=== PATIENT | female | born 2000 | race African-American/Black ===

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

== ENCOUNTER 2018-02-23 06:31 | Emergency (ER) | payer MEDICAID ==
--- NOTE | 2018-02-23 07:43 | ER Document Report ---
ED General - General Chief Complaint: Abdominal Pain Stated Complaint: ABDOMINAL PAIN Time Seen by Provider: 02/23/18 07:15 Mode of Arrival: Ambulatory Information source: Patient TRAVEL OUTSIDE OF THE [place] IN LAST 30 DAYS: No - HPI Patient complains to provider of: Periumbilical pain Onset: Yesterday Onset/Duration: denies: Intermittent - x 3 months, severe this morning. Severity: Severe Pain Level: 3 Associated symptoms: Nausea Exacerbated by: Denies. denies: Food Relieved by: Denies Similar symptoms previously: No Recently seen / treated by doctor: No Notes: Still has appendix and gallbladder. Denies , currently on menses - Related Data Allergies/Adverse Reactions: No Known Allergies Allergy (Unverified 03/10/17 20:32) Past Medical History - General Information source: Patient - Social History Smoking Status: Unknown if Ever Smoked Family History: None, Reviewed & Not Pertinent Renal/ Medical History: Denies: Hx Peritoneal Dialysis Review of Systems - Review of Systems Constitutional: No symptoms reported EENT: No symptoms reported Cardiovascular: No symptoms reported Respiratory: No symptoms reported Gastrointestinal: See HPI Genitourinary: No symptoms reported Female Genitourinary: No symptoms reported Musculoskeletal: No symptoms reported Skin: No symptoms reported Hematologic/Lymphatic: No symptoms reported Neurological/Psychological: No symptoms reported Physical Exam - Vital signs Vitals: Temp Pulse Resp BP Pulse Ox 98.4 F 78 20 112/72 99 02/23/18 06:35 02/23/18 06:35 02/23/18 06:35 02/23/18 06:35 02/23/18 06:35 - Notes Notes: PHYSICAL EXAMINATION: GENERAL: Well-appearing, well-nourished and in no acute distress. HEAD: Atraumatic, normocephalic. EYES: Pupils equal round and reactive to light, extraocular movements intact, conjunctiva are normal. ENT: Nares patent, oropharynx clear without exudates. Moist mucous membranes. NECK: Normal range of motion, supple without lymphadenopathy LUNGS: Breath sounds clear to auscultation bilaterally and equal. No wheezes rales or rhonchi. HEART: Regular rate and rhythm without murmurs ABDOMEN: Soft, periumbilical tenderness on palpation with rebound. nondistended abdomen. No guarding, no rebound. No masses appreciated. no CVA tenderness bilaterally Female : deferred Musculoskeletal: Normal range of motion, no pitting or edema. No cyanosis. NEUROLOGICAL: Cranial nerves grossly intact. Normal speech, normal gait. Normal sensory, motor exams PSYCH: Normal mood, normal affect. SKIN: Warm, Dry, normal turgor, no rashes or lesions noted. Course - Re-evaluation Re-evalutation: 02/23/18 10:19 16-year-old female is afebrile, vitals stable and in no distress presents for evaluation of periumbilical pain has become progressively worse in the last 24 hours but she has had intermittently over the course 3 months. Reports pain is sharp and shooting. Patient is on a depo shot for control, states she has had vaginal bleeding for the last 5 days, denies any sexual intercourse for the last 4 months. Is due to get her next shot in 1 week with [facility]. CBC negative for leukocytosis, CMP negative for hepatic renal dysfunction, no electrolyte disturbances. Urinalysis shows patient has a UTI with hematuria. Transvaginal ultrasound that showed endometrial thickening, ultrasound of abdomen is unable to visualize appendix, CT abdomen pelvis with IV contrast does show some periorbital edema throughout the liver the patient is hydrated, appendix is normal. Will start patient on a PPI, H pylori result is still pending. Discussed the patient follow-up with tobacco stripper hand within 1 week. Avoid any NSAIDs. After performing a Medical Screening Examination, I estimate there is LOW risk for ACUTE APPENDICITIS, BOWEL OBSTRUCTION, ACUTE CHOLECYSTITIS, PERFORATED DIVERTICULITIS, INCARCERATED HERNIA , PANCREATITIS, PELVIC INFLAMMATORY DISEASE, PERFORATED ULCER, ECTOPIC , or TUBO-OVARIAN ABSCESS, thus I consider the discharge disposition reasonable. Also, there is no evidence or peritonitis, sepsis, or toxicity. I have reevaluated this patient multiple times and no significant life threatening changes are noted. The patient and I have discussed the diagnosis and risks, and we agree with discharging home with close follow-up with the understanding that symptoms and presentations can change. We also discussed returning to the Emergency Department immediately if new or worsening symptoms occur. We have discussed the symptoms which are most concerning (e.g., bloody stool, fever, changing or worsening pain, vomiting) that necessitate immediate return. - Vital Signs Vital signs: Temp Pulse Resp BP Pulse Ox 98.6 F 69 16 107/74 99 02/23/18 10:17 02/23/18 10:17 02/23/18 10:17 02/23/18 10:17 02/23/18 10:17 - Laboratory Result Diagrams: 02/23/18 08:35 02/23/18 08:35 Laboratory results interpreted by me: 02/23/18 02/23/18 02/23/18 08:20 08:35 08:35 Hgb 10.8 L Hct 34.3 L MCV 65 L MCH 20.6 L MCHC 31.6 L RDW 19.2 H Chloride 108 H Urine Blood SMALL H Urine Urobilinogen 2.0 H Ur Leukocyte Esterase MODERATE H Discharge - Discharge Clinical Impression: Thickened endometrium, Gastritis UTI (urinary tract infection) Qualifiers: Urinary tract infection type: acute cystitis Hematuria presence: with hematuria Qualified Code(s): N30.01 - Acute cystitis with hematuria Condition: Stable Disposition: HOME, SELF-CARE Instructions: Trimethoprim-Sulfa ([facility]), Urinary Anesthetic Agent ([facility]), Urinary Tract Infection ([facility]), Abdominal Pain ([facility]), Gastritis ([facility]) Prescriptions: Omeprazole 40 mg PO DAILY #30 capsule. Phenazopyridine HCl [Pyridium] 200 mg PO TIDP PRN #9 tablet PRN Reason: Sulfamethoxazole/Trimethoprim [Bactrim Ds Tablet] 1 each PO BID #20 tablet Forms: Return to Work Referrals: RASHEL CARTER MD [ASSOCIATE] - Follow up in 1 week (prn) JOSE LUIS DAO MD [ACTIVE STAFF] - Follow up in 1 week PARAS VIEIRA MD [Primary Care Provider] - Follow up in 3-5 days
[2018-02-23] MEDS ORDERED: NORMAL SALINE 1000 ML 1,000 ML IV ONE (08:16)
[2018-02-23 09:01] LABS: ABSOLUTE BASOPHILS # (AUTO) 0.1 10^3/uL (0.0-0.2); ABSOLUTE EOSINOPHILS # (AUTO) 0.2 10^3/uL (0.0-0.6); ABSOLUTE LYMPHOCYTES (AUTO) 2.5 10^3/uL (0.5-4.7); ABSOLUTE MONOCYTES (AUTO) 0.4 10^3/uL (0.1-1.4); ABSOLUTE NEUT (AUTO) 3.7 10^3/uL (1.7-8.2); BASOPHILS % (AUTO) 1.6 % (0-2); EOSINOPHILS % (AUTO) 3.3 % (0-6); HEMATOCRIT 34.3 % (36.0-47.0); HEMOGLOBIN 10.8 g/dL (12.0-15.5); LYMPHOCYTES % (AUTO) 35.3 % (13-45); MEAN CORPUSCULAR HEMOGLOBIN 20.6 pg (27.0-33.4); MEAN CORPUSCULAR HGB CONC 31.6 g/dL (32.0-36.0); MEAN CORPUSCULAR VOLUME 65 fl (80-97); MONOCYTES % (AUTO) 6.1 % (3-13); PLATELET COUNT 419 10^3/uL (150-450); RED BLOOD COUNT 5.26 10^6/uL (3.72-5.28); RED CELL DISTRIBUTION WIDTH 19.2 % (11.5-14.0); SEGMENTED NEUTROPHILS % (AUTO) 53.7 % (42-78); TOTAL CELLS COUNTED % (AUTO) 100 %
[2018-02-23 09:06] LABS: APPEARANCE,URINE SLIGHTLY-CLOUDY; BILIRUBIN,URINE NEGATIVE (NEGATIVE); COLOR,URINE YELLOW; GLUCOSE, URINE NEGATIVE (NEGATIVE); KETONES,URINE NEGATIVE (NEGATIVE); LEUKOCYTE ESTERASE,URINE MODERATE (NEGATIVE); NITRITE,URINE NEGATIVE (NEGATIVE); PROTEIN,URINE NEGATIVE (NEGATIVE); URINE SPECIFIC GRAVITY 1.016
--- NOTE | 2018-02-23 09:14 | RADIOLOGY REPORT (SQ) ---
EXAM DESCRIPTION: U/S ABDOMEN LTD W/DOPPLER COMPLETED DATE/TIME: 02/23/2018 8:49 am REASON FOR STUDY: Periumbilical pain, please look at appendix COMPARISON: None. TECHNIQUE: Static and real time ruiz scale imaging performed of the right lower quadrant with additi onal compression maneuvers. LIMITATIONS: None. FINDINGS: APPENDIX: Not visualized. COMPRESSION MANEUVERS: No rebound pain with compression. OTHER: No other significant finding. IMPRESSION: APPENDIX NOT IDENTIFIED. TECHNICAL DOCUMENTATION: JOB ID: [id number] [employer]- All Rights Reserved Reading location - IP/workstation name: [email or web address]
[2018-02-23 09:24] LABS: ALANINE AMINOTRANSFERASE 24 U/L (5-35); ALBUMIN 4.5 g/dL (3.7-5.6); ALKALINE PHOSPHATASE 103 U/L (50-135); ANION GAP 13 (5-19); ASPARTATE AMINO TRANSFERASE 19 U/L (5-30); BILIRUBIN,DIRECT 0.3 mg/dL (0.0-0.4); BILIRUBIN,TOTAL 0.4 mg/dL (0.2-1.3); BLOOD UREA NITROGEN 8 mg/dL (7-20); CALCIUM 9.5 mg/dL (8.4-10.2); CARBON DIOXIDE 24 mmol/L (22-30); CHLORIDE 108 mmol/L (98-107); GLUCOSE 91 mg/dL (75-110); LIPASE 145.6 U/L (23-300); POTASSIUM 4.4 mmol/L (3.6-5.0); SODIUM 144.7 mmol/L (137-145); TOTAL PROTEIN 7.9 g/dL (6.3-8.2)
--- NOTE | 2018-02-23 11:13 | RADIOLOGY REPORT (SQ) ---
EXAM DESCRIPTION: CT ABD/PELVIS WITH IV ONLY COMPLETED DATE/TIME: 02/23/2018 10:45 am REASON FOR STUDY: Periumbilical pain COMPARISON: None. TECHNIQUE: CT scan of the abdomen and pelvis performed using helical scanning technique with dynamic intravenous contrast injection. No oral contrast. Images reviewed with lung, soft tissue, and bone windows. Reconstructed coronal and sagittal MPR images reviewed. Delayed images for evaluation of the urinary system also acquired. All images stored on PACS. All CT scanners at this facility use dose modulation, iterative reconstruction, and/or weight based d osing when appropriate to reduce radiation dose to as low as reasonably achievable (ALARA). [facility]: Dose Right [facility]: CareDose [facility]: Dose Right [facility]: Teradose 4D [facility]: [employer] CONTRAST TYPE AND DOSE: contrast/concentration: Isovue 370.00 mg/ml; Total Contrast Delivered: 81.0 ml; Total Saline Delivered: 68.0 ml 81 mL Isovue 370- low osmolar. RENAL FUNCTION: None required. The patient is less than 50 years old. RADIATION DOSE: CT Rad equipment meets quality standard of care and radiation dose reduction techniq ues were employed. CTDIvol: 7.2 - 10.4 mGy. DLP: 853 mGy-cm.. LIMITATIONS: None. FINDINGS: LOWER CHEST: No significant findings. No nodules or infiltrates. LIVER: Normal size. No masses. No dilated ducts. Periportal edema is present throughout the liver. SPLEEN: Normal size. No focal lesions. PANCREAS: No masses. No significant calcifications. No adjacent inflammation or peripancreatic fluid collections. Pancreatic duct not dilated. GALLBLADDER: No identified stones by CT criteria. No inflammatory changes to suggest cholecystitis. ADRENAL GLANDS: No significant masses or asymmetry. RIGHT KIDNEY AND URETER: No solid masses. No significant calcifications. No hydronephrosis or hyd roureter. LEFT KIDNEY AND URETER: No solid masses. No significant calcifications. No hydronephrosis or hydr oureter. AORTA AND VESSELS: No aneurysm. No dissection. Renal arteries, SMA, celiac without stenosis. RETROPERITONEUM: No retroperitoneal adenopathy, hemorrhage or masses. BOWEL AND PERITONEAL CAVITY: No masses or inflammatory changes. No free fluid or peritoneal masses. APPENDIX: Normal. PELVIS: The endometrium is markedly thickened within the uterus measuring up to 2.2 cm in thickness. The ovaries are unremarkable for age in technique. The bladder is normal in appearance. ABDOMINAL WALL: No masses. No hernias. BONES: No significant or acute findings. OTHER: No other significant finding. IMPRESSION: 1. Markedly thickened endometrium. Recommend correlation with patient's menstrual stat us. 2. Periportal edema throughout the liver. Recommend correlation with patient's hydration status. 3. Normal appendix TECHNICAL DOCUMENTATION: JOB ID: [id number] Quality ID # [id number]: Final reports with documentation of one or more dose reduction techniques (e.g., Au tomated exposure control, adjustment of the mA and/or kV according to patient size, use of iterative reconstruction technique) 2010 [employer]- All Rights Reserved Reading location - IP/workstation name: [email or web address]
[2018-02-23 12:01] VITALS: BP 110/67
[2018-02-26 07:05] LABS: HELICOBACTER PYLORI IGA AB <9.0 units (0.0-8.9); HELICOBACTER PYLORI IGG AB <0.80 (0.00-0.79); HELICOBACTER PYLORI IGM AB <9.0 units (0.0-8.9)
== END 2018-02-23 12:11 | disposition home or self-care (01) ==
LOC: ER 06:31
DX: K29.70 Gastritis, unspecified, without bleeding (principal); N30.01 Acute cystitis with hematuria; R93.8 Abnormal findings on diagnostic imaging of other specified body structures; R10.33 Periumbilical pain; R11.0 Nausea
CPT/HCPCS: 99284; 96360; 86677 ×3; 36415; 87086; 83690; 84703; 85025; 80053; 81001; 76705; 93976; 74177; J7030

== ENCOUNTER 2019-07-26 15:11 | Emergency (ER) | payer MEDICAID ==
[2019-07-26] MEDS ORDERED: AZITHROMYCIN 250 MG TABLET PO ONE (16:14)
[2019-07-26] MEDS ORDERED: LIDOCAINE 1% INJ-PF (10 MG/ML) 30 ML SDV INJ ONE (16:14)
[2019-07-26] MEDS ORDERED: CEFTRIAXONE INJ 250 MG VIAL IM ONE (16:14)
[2019-07-26 16:43] LABS: APPEARANCE,URINE CLEAR; BILIRUBIN,URINE NEGATIVE (NEGATIVE); COLOR,URINE YELLOW; GLUCOSE, URINE NEGATIVE (NEGATIVE); KETONES,URINE NEGATIVE (NEGATIVE); LEUKOCYTE ESTERASE,URINE TRACE (NEGATIVE); NITRITE,URINE NEGATIVE (NEGATIVE); PROTEIN,URINE NEGATIVE (NEGATIVE); URINE SPECIFIC GRAVITY 1.024; UROBILINOGEN,URINE NEGATIVE mg/dL (<2.0)
--- NOTE | 2019-07-26 17:16 | ER Document Report ---
HPI - HPI Time Seen by Provider: 07/26/19 16:07 Pain Level: 4 Context: Patient is a 19-year-old female who presents emergency department with a chief complaint of STD exposure. Patient reports she is sexually active with 1 partner did turn positive for chlamydia last week. Patient reports initially she was not having any discomfort of her vaginal discharge but now she is having burning with urination and itching. Patient reports her vaginal discharge is yellow in color and thick. Patient denies odor. Patient denies fever. Patient reports last menstrual cycle was the Apr 29 and she is on control. - REPRODUCTIVE LMP: irregular periods Reproductive: DENIES: : Past Medical History - General Information source: Patient - Social History Smoking Status: Current Every Day Smoker Chew tobacco use (# tins/day): No Frequency of alcohol use: Occasional Drug Abuse: None Family History: None, Reviewed & Not Pertinent Patient has suicidal ideation: No Patient has homicidal ideation: No - Past Medical History Cardiac Medical History: Reports: None Pulmonary Medical History: Reports: None EENT Medical History: Reports: None Neurological Medical History: Reports: None Endocrine Medical History: Reports: None Renal/ Medical History: Reports: None. Denies: Hx Peritoneal Dialysis Malignancy Medical History: Reports: None GI Medical History: Reports: None Musculoskeletal Medical History: Reports None Skin Medical History: Reports None Psychiatric Medical History: Reports: None Traumatic Medical History: Reports: None Infectious Medical History: Reports: None Surgical Hx: Negative Vertical Provider Document - CONSTITUTIONAL Agree With Documented VS: Yes Exam Limitations: No Limitations General Appearance: No Apparent Distress - INFECTION CONTROL TRAVEL OUTSIDE OF THE [place] IN LAST 30 DAYS: No - HEENT HEENT: Atraumatic, Normal ENT Exam, Normocephalic, PERRLA - NECK Neck: Normal Inspection - RESPIRATORY Respiratory: Breath Sounds Normal, No Respiratory Distress - CARDIOVASCULAR Cardiovascular: Regular Rate, Regular Rhythm - GI/ABDOMEN Gastrointestinal: Abdomen Soft, Abdomen Non-Tender, Normal Bowel Sounds - MUSCULOSKELETAL/EXTREMETIES Musculoskeletal/Extremeties: FROM - NEURO Level of Consciousness: Awake, Alert, Appropriate - DERM Integumentary: Warm, Dry, No Rash Course - Re-evaluation Re-evalutation: 07/26/19 17:16 Patient to be prophylactically treated for gonorrhea and chlamydia. Cultures pending. Will check a wet mount to rule out yeast, bacterial vaginosis or trichomonas. 07/26/19 17:49 Patient was noted to have active vaginosis on the wet mount. Negative for trichomonas and yeast. Patient was prophylactically treated for gonorrhea and chlamydia. Will prescribe Flagyl. I did inform the patient do not drink alcohol while on Flagyl as this will make her sick. Patient given strict return precautions. - Vital Signs Vital signs: Temp Pulse Resp BP Pulse Ox 98.3 F 81 16 128/72 H 99 07/26/19 15:58 07/26/19 15:15 07/26/19 15:58 07/26/19 15:15 07/26/19 15:58 - Laboratory Laboratory results interpreted by me: 07/26/19 16:24 Urine Blood SMALL H Ur Leukocyte Esterase TRACE H 07/26/19 17:46 Laboratory 07/26/19 07/26/19 16:24 17:10 Urine Color YELLOW Urine Appearance CLEAR Urine pH 5.0 Ur Specific Bowlus 1.024 Urine Protein NEGATIVE Urine Glucose (UA) NEGATIVE Urine Ketones NEGATIVE Urine Blood SMALL H Urine Nitrite NEGATIVE Urine Bilirubin NEGATIVE Urine Urobilinogen NEGATIVE Ur Leukocyte Esterase TRACE H Urine WBC (Auto) 1 Urine RBC (Auto) 4 Squamous Epi Cells Auto 1 Urine Mucus (Auto) MANY Urine Ascorbic Acid NEGATIVE Urine HCG, Qual NEGATIVE Epi Cells (Wet Prep) 3+ EPITHELIALS SEEN Bacteria (Wet Prep) 4+ BACTERIA SEEN Trichomonas (Wet Prep) NO TRICHOMONAS SEEN Vaginal WBC 3+ WBCS SEEN Vaginal RBC RARE RBCS SEEN Vaginal Yeast NO YEAST SEEN Procedures - Pelvic Exam Pelvic exam Time completed: 17:15 Cultures obtained: Yes Wet prep obtained: Yes Bimanual exam performed: Yes - No CMT Witnessed by: Michelle PCT Notes: 07/26/19 17:15 Patient's external genitalia was unremarkable without edema, lesions or erythema. Patient tolerated the insertion of the speculum fairly well. I was able to visualize the cervix which did reveal a thick yellow discharge. There is no vaginal bleeding noted. Patient did not have any cervical motion tenderness with bimanual examination. Discharge - Discharge Clinical Impression: Exposure to STD, Bacterial vaginosis Condition: Stable Disposition: HOME, SELF-CARE Additional Instructions: *Today you are seen in the emergency department for possible STD exposure. We have prophylactically treated you for gonorrhea and chlamydia. These medications were a one-time dose given to you in the emergency department. You will be contacted if your test is positive. If it is positive you do need to be retested in 2 weeks to make sure that the STD has been treated appropriately and is gone. Please refrain from sexual activity until you know that you do not have an STD. You need to use protection every time you have sex. Failure to do so can result in transmission of infections or unintended . You have been treated for an sexually transmitted infection (STI) today. All of your partners should be tested and treated as they are also likely to be infected. Please return if you develop abdominal pain, fever, persistent vomiting, or any other symptoms that are concerning to you. Vaginosis, Bacterial Your exam shows you have bacterial vaginosis. This condition is due to an overgrowth of bacteria in the vagina. Symptoms may include vaginal itching or pain, a smelly discharge, and sometimes burning with urination. Normally this is not transmitted by sexual contact. Vaginosis can be treated with oral or topical antibiotics. Metronidazole (Flagyl) pills are usually effective. Topical vaginal creams include Cleocin and Metro-Gel. You should avoid sexual contact until your symptoms are all better. Call the doctor if you develop pelvic pain, fever, or problems with urination, or if you don't improve as expected. Do NOT drink alcohol with Flagyl - it will make you extremely sick. Prescriptions: Metronidazole [Flagyl 500 mg Tablet] 500 mg PO BID #14 tablet
[2019-07-26 17:33] LABS: BACTERIA (WET MOUNT) 4+ BACTERIA SEEN; EPITHELIALS (WET MOUNT) 3+ EPITHELIALS SEEN; RBCS (WET MOUNT) RARE RBCS SEEN; T.VAGINALIS (WET MOUNT) NO TRICHOMONAS SEEN; WBCS (WET MOUNT) 3+ WBCS SEEN; YEAST (WET MOUNT) NO YEAST SEEN
[2019-07-26 18:11] VITALS: BP 108/70
[2019-07-26 19:02] LABS: CHLAM PCR DETECTED (NOT DETECT)
== END 2019-07-26 18:00 | disposition home or self-care (01) ==
LOC: ER 15:11
DX: N76.0 Acute vaginitis (principal); B96.89 Other specified bacterial agents as the cause of diseases classified elsewhere; Z20.2 Contact with and (suspected) exposure to infections with a predominantly sexual mode of transmission; R30.0 Dysuria; L29.2 Pruritus vulvae; F17.200 Nicotine dependence, unspecified, uncomplicated; Z79.3 Long term (current) use of hormonal contraceptives
CPT/HCPCS: 99283; 96372; 87210; 81025; 81001; 87491; 87591; Q0144; J3490; J0696

== ENCOUNTER 2019-07-31 16:00 | Emergency (ER) | payer SELFPAY ==
--- NOTE | 2019-07-31 17:47 | ER Document Report ---
ED Medical Screen (RME) - General Chief Complaint: Vaginal Itching Stated Complaint: VAGINAL PAIN/DISCOMFORT Time Seen by Provider: 07/31/19 17:40 Mode of Arrival: Ambulatory Information source: Patient Notes: 19-year-old female patient presents emergency department chief complaint of pelvic pain, dysuria and abnormal vaginal discharge. Patient reports she was seen here on 07/26/2019, diagnosed with chlamydia and bacterial vaginosis. Patient reports that she continues to have foul vaginal discharge and now has pelvic pain specifically in the left lower quadrant and left flank area. She denies any known fevers but does state that she has been having chills and nausea. Patient denies any vomiting. Exam: Tenderness to palpation of the left lower quadrant. I have greeted and performed a rapid initial assessment of this patient. A comprehensive ED assessment and evaluation of the patient, analysis of test results and completion of the medical decision making process will be conducted by additional ED providers. I have specifically instructed the patient or family members with the patient to immediately return to any nursing staff should anything change in the patient's condition or with their chief complaint. This medical record was dictated with voice recognizing software. There may be grammatical, syntax errors that are unintended. TRAVEL OUTSIDE OF THE [place] IN LAST 30 DAYS: No - Related Data Allergies/Adverse Reactions: No Known Allergies Allergy (Verified 07/31/19 17:39) Past Medical History - Social History Chew tobacco use (# tins/day): No Frequency of alcohol use: None Drug Abuse: None Renal/ Medical History: Denies: Hx Peritoneal Dialysis Physical Exam - Vital signs Vitals: Temp Pulse Resp BP Pulse Ox 98.3 F 80 18 119/56 L 98 07/31/19 16:35 07/31/19 16:35 07/31/19 16:35 07/31/19 16:35 07/31/19 16:35 Course - Vital Signs Vital signs: Temp Pulse Resp BP Pulse Ox 98.3 F 80 18 119/56 L 98 07/31/19 17:39 07/31/19 16:35 07/31/19 17:39 07/31/19 16:35 07/31/19 17:39
[2019-07-31 18:03] LABS: ABSOLUTE BASOPHILS # (AUTO) 0.1 10^3/uL (0.0-0.2); ABSOLUTE EOSINOPHILS # (AUTO) 0.1 10^3/uL (0.0-0.6); ABSOLUTE LYMPHOCYTES (AUTO) 1.9 10^3/uL (0.5-4.7); ABSOLUTE NEUT (AUTO) 4.2 10^3/uL (1.7-8.2); BASOPHILS % (AUTO) 0.7 % (0-2); EOSINOPHILS % (AUTO) 1.7 % (0-6); HEMATOCRIT 41.1 % (36.0-47.0); HEMOGLOBIN 13.2 g/dL (12.0-15.5); LYMPHOCYTES % (AUTO) 26.5 % (13-45); MEAN CORPUSCULAR HEMOGLOBIN 23.6 pg (27.0-33.4); MEAN CORPUSCULAR HGB CONC 32.2 g/dL (32.0-36.0); MEAN CORPUSCULAR VOLUME 73 fl (80-97); PLATELET COUNT 245 10^3/uL (150-450); RED BLOOD COUNT 5.62 10^6/uL (3.72-5.28); RED CELL DISTRIBUTION WIDTH 16.9 % (11.5-14.0); SEGMENTED NEUTROPHILS % (AUTO) 57.1 % (42-78); TOTAL CELLS COUNTED % (AUTO) 100 %; WHITE BLOOD COUNT 7.3 10^3/uL (4.0-10.5)
[2019-07-31 18:23] LABS: APPEARANCE,URINE SLIGHTLY-CLOUDY; BILIRUBIN,URINE NEGATIVE (NEGATIVE); COLOR,URINE AMBER; GLUCOSE, URINE NEGATIVE (NEGATIVE); KETONES,URINE NEGATIVE (NEGATIVE); LEUKOCYTE ESTERASE,URINE SMALL (NEGATIVE); NITRITE,URINE POSITIVE (NEGATIVE); PROTEIN,URINE 30 mg/dL (NEGATIVE); URINE SPECIFIC GRAVITY 1.011
[2019-07-31 18:26] LABS: ALBUMIN 4.4 g/dL (3.5-5.0); ALKALINE PHOSPHATASE 65 U/L (38-126); ANION GAP 15 (5-19); ASPARTATE AMINO TRANSFERASE 19 U/L (14-36); BILIRUBIN,TOTAL 0.5 mg/dL (0.2-1.3); BLOOD UREA NITROGEN 9 mg/dL (7-20); CALCIUM 9.9 mg/dL (8.4-10.2); CARBON DIOXIDE 25 mmol/L (22-30); CHLORIDE 102 mmol/L (98-107); GLUCOSE 79 mg/dL (75-110); POTASSIUM 3.7 mmol/L (3.6-5.0); TOTAL PROTEIN 7.8 g/dL (6.3-8.2)
--- NOTE | 2019-07-31 19:06 | RADIOLOGY REPORT (SQ) ---
EXAM DESCRIPTION: U/S NON OB PEL TV W/DOPPLER COMPLETED DATE/TIME: 07/31/2019 6:55 pm REASON FOR STUDY: pelvic pain, recent STD infection, LLQ pain COMPARISON: None. TECHNIQUE: Dynamic and static grayscale images acquired of the pelvis via transvaginal approach and recorded on PACS. Additional selected color Doppler and spectral images recorded. LIMITATIONS: None. FINDINGS: UTERUS: Contour normal. No mass. ENDOMETRIAL STRIPE: No focal or generalized thickening. No masses. CERVIX: No nabothian cysts. RIGHT OVARY AND DOPPLER: Normal size. No worrisome masses. Small cysts and follicles. Normal arteri al vascular flow without evidence for torsion. LEFT OVARY AND DOPPLER: Normal size. No worrisome masses. Normal arterial vascular flow without evide nce for torsion. FREE FLUID: None noted. OTHER: No other significant finding. MEASUREMENTS: UTERUS: 6.8 x 3.0 x 4.7 cm ENDOMETRIAL STRIPE: 2.1 mm RIGHT OVARY: 2.1 x 2.1 x 2.1 cm LEFT OVARY: 1.1 x 2.3 x 2.0 cm IMPRESSION: NORMAL TRANSVAGINAL PELVIC ULTRASOUND. TECHNICAL DOCUMENTATION: JOB ID: [id number]- All Rights Reserved Rev-01/03 Reading location - IP/workstation name: [email or web address]
--- NOTE | 2019-07-31 22:29 | ER Document Report ---
ED General - General Chief Complaint: Vaginal Itching Stated Complaint: VAGINAL PAIN/DISCOMFORT Time Seen by Provider: 07/31/19 17:40 Primary Care Provider: SERENE GUZMAN MD [Primary Care Provider] - Follow up in 3-5 days Mode of Arrival: Ambulatory Notes: 19-year-old female presents with 6-day history of vaginal irritation, vaginal discharge, and dysuria. Patient was seen on the eighth and was diagnosed with bacterial vaginosis and chlamydia. Patient was treated for both, patient is s till taking Flagyl and states she has 2 days left. Patient denies vomiting, abdominal pain, fever/chills. TRAVEL OUTSIDE OF THE [place] IN LAST 30 DAYS: No - Related Data Allergies/Adverse Reactions: No Known Allergies Allergy (Verified 07/31/19 17:39) Past Medical History - General Information source: Patient - Social History Smoking Status: Current Every Day Smoker Chew tobacco use (# tins/day): No Frequency of alcohol use: None Drug Abuse: None Family History: None, Reviewed & Not Pertinent Patient has suicidal ideation: No Patient has homicidal ideation: No Renal/ Medical History: Denies: Hx Peritoneal Dialysis Review of Systems - Review of Systems Notes: Constitutional: Negative for fever. HENT: Negative for sore throat. Eyes: Negative for visual changes. Cardiovascular: Negative for chest pain. Respiratory: Negative for shortness of breath. Gastrointestinal: Negative for abdominal pain, vomiting or diarrhea. Genitourinary: Positive for dysuria, vaginal irritation, and vaginal discharge. Musculoskeletal: Negative for back pain. Skin: Negative for rash. Neurological: Negative for headaches, weakness or numbness. 10 point ROS negative except as marked above and in HPI. Physical Exam - Vital signs Vitals: Temp Pulse Resp BP Pulse Ox 98.3 F 80 18 119/56 L 98 07/31/19 16:35 07/31/19 16:35 07/31/19 16:35 07/31/19 16:35 07/31/19 16:35 - Notes Notes: GENERAL: Well-appearing, well-nourished and in no acute distress. HEAD: Atraumatic, normocephalic. EYES: Pupils equal round and reactive to light, extraocular movements intact, sclera anicteric, conjunctiva are normal. NECK: Normal range of motion, supple without lymphadenopathy or JVD. ABDOMEN: Soft, nontender. No guarding, no rebound. No masses appreciated. : Irritation noted to lower labia, no vaginal discharge. EXTREMITIES: Normal range of motion, no pitting or edema. No clubbing or cyanosis. NEUROLOGICAL: Cranial nerves II through XII grossly intact. Normal speech, normal gait. PSYCH: Normal mood, normal affect. SKIN: Warm, Dry, normal turgor, no rashes or lesions noted. Course - Re-evaluation Re-evalutation: 07/31/19 19-year-old female presents for vaginal irritation, vaginal discharge, pelvic pain for 6 days. Patient states vaginal discharge has improved since being seen on the eighth. Patient is currently taking Flagyl for bacterial vaginosis. Patient's ultrasound is negative. Lab work is unremarkable. UA does show UTI. Pelvic culture sent. Pelvic cultures negative. Pt's exam consistent with yeast infection. Pt given prescription for nystatin and Macrobid. Discussed all results with pt. Pt given outpatient follow up. Return precautions given. All questions/concerns addressed prior to discharge. - Vital Signs Vital signs: Temp Pulse Resp BP Pulse Ox 98.6 F 82 16 120/68 100 08/01/19 01:37 08/01/19 01:37 08/01/19 01:37 08/01/19 01:37 08/01/19 01:37 - Laboratory Result Diagrams: 07/31/19 17:50 07/31/19 17:50 Laboratory results interpreted by me: 07/31/19 07/31/19 07/31/19 17:50 17:50 17:50 RBC 5.62 H MCV 73 L MCH 23.6 L RDW 16.9 H [place] % (Auto) 14.0 H Creatinine 1.39 H Est GFR ( Amer) 58 L Est GFR (MDRD) Non-Af 48 L Urine Protein 30 H Urine Blood LARGE H Urine Nitrite POSITIVE H Urine Urobilinogen 4.0 H Ur Leukocyte Esterase SMALL H Discharge - Discharge Clinical Impression: Acute UTI, Vaginal yeast infection Condition: Stable Disposition: HOME, SELF-CARE Instructions: Nitrofurantoin ([facility]), Urinary Tract Infection ([facility]), Vaginal Yeast Infection ([facility]) Additional Instructions: Your work-up today showed a urinary tract infection. Your exam revealed possible yeast infection. Please take medications as prescribed. Please follow-up with your primary care doctor in 3 to 5 days. Return to ER for any worsening symptoms, including fever, abdominal pain, nausea/vomiting, increased burning, vaginal pain, increased vaginal discharge, or any other symptoms that a re concerning to you. Prescriptions: Nitrofurantoin Macrocrystal [Macrodantin] 100 mg PO BID #10 capsule Nystatin [Mycostatin Cream 15 gm] 1 applic TP BID #15 gm Forms: Return to Work Referrals: SERENE GUZMAN MD [Primary Care Provider] - Follow up in 3-5 days
[2019-07-31 22:32] LABS: T.VAGINALIS (WET MOUNT) NO TRICHOMONAS SEEN; YEAST (WET MOUNT) NO YEAST SEEN
[2019-07-31 22:33] LABS: WBCS (WET MOUNT) NO WBCS SEEN
[2019-07-31 23:59] LABS: CHLAM PCR NOT DETECTED (NOT DETECT)
[2019-08-01 01:38] VITALS: BP 120/68
== END 2019-08-01 01:37 | disposition home or self-care (01) ==
LOC: ER 16:00
DX: N39.0 Urinary tract infection, site not specified (principal); B37.3 Candidiasis of vulva and vagina; R10.2 Pelvic and perineal pain; N89.8 Other specified noninflammatory disorders of vagina; R30.0 Dysuria; F17.200 Nicotine dependence, unspecified, uncomplicated
CPT/HCPCS: 36415; 76830; 80053; 81001; 85025; 87210; 87491; 87591; 93976; 99284

== ENCOUNTER 2019-08-11 13:26 | Emergency (ER) | payer SELFPAY ==
[2019-08-11 13:51] LABS: ABSOLUTE LYMPHOCYTES (AUTO) 0.7 10^3/uL (0.5-4.7); ABSOLUTE MONOCYTES (AUTO) 0.3 10^3/uL (0.1-1.4); BASOPHILS % (AUTO) 0.6 % (0-2); EOSINOPHILS % (AUTO) 0.1 % (0-6); HEMATOCRIT 38.5 % (36.0-47.0); HEMOGLOBIN 12.4 g/dL (12.0-15.5); LYMPHOCYTES % (AUTO) 22.7 % (13-45); MEAN CORPUSCULAR HEMOGLOBIN 23.3 pg (27.0-33.4); MEAN CORPUSCULAR HGB CONC 32.3 g/dL (32.0-36.0); MEAN CORPUSCULAR VOLUME 72 fl (80-97); MONOCYTES % (AUTO) 9.4 % (3-13); PLATELET COUNT 170 10^3/uL (150-450); RED BLOOD COUNT 5.33 10^6/uL (3.72-5.28); RED CELL DISTRIBUTION WIDTH 16.9 % (11.5-14.0); SEGMENTED NEUTROPHILS % (AUTO) 67.2 % (42-78); TOTAL CELLS COUNTED % (AUTO) 100 %; WHITE BLOOD COUNT 2.9 10^3/uL (4.0-10.5)
[2019-08-11 14:10] LABS: ALBUMIN 3.8 g/dL (3.5-5.0); ALKALINE PHOSPHATASE 68 U/L (38-126); ANION GAP 9 (5-19); ASPARTATE AMINO TRANSFERASE 119 U/L (14-36); BILIRUBIN,DIRECT 0.2 mg/dL (0.0-0.4); BILIRUBIN,TOTAL 0.5 mg/dL (0.2-1.3); BLOOD UREA NITROGEN 8 mg/dL (7-20); CALCIUM 8.7 mg/dL (8.4-10.2); CARBON DIOXIDE 25 mmol/L (22-30); CHLORIDE 104 mmol/L (98-107); CREATINE KINASE 317 U/L (30-135); GLUCOSE 99 mg/dL (75-110); POTASSIUM 3.5 mmol/L (3.6-5.0); TOTAL PROTEIN 7.1 g/dL (6.3-8.2)
[2019-08-11 14:22] LABS: CREATINE KINASE MB 0.29 ng/mL (<4.55)
[2019-08-11 14:29] LABS: TROPONIN I < 0.012 ng/mL
--- NOTE | 2019-08-11 15:02 | ER Document Report ---
ED Dizziness/Weakness - General Chief Complaint: Syncope Stated Complaint: POSSIBLE SYNCOPE Primary Care Provider: SERENE GUZMAN MD [Primary Care Provider] - Follow up as needed TRAVEL OUTSIDE OF THE [place] IN LAST 30 DAYS: No - HPI Notes: 19f bibEMS for syncope while she was at work. pt says she was at work, had gone to lunch and remembered feeling she might pass out. she felt hot, diaphoretic and her vision narrowed darkened and thinks eased herself down to floor, then awoke people said she briefly lost consciousness. witnesses & EMS says denied trauma assc w/ event or any reported sz activity. denies palpitations other recent VIDES/dec in exercise tolerance or dyspnea at rest or pnd/orthopnea, n/v/d. has had a few days prior of overall malaise, cough, nasal congestion, subj fevers and per ems and pt has had the flu since Saturday, a few days now. per EMR, last visit 07/31 now >1 wk/a today states had been treated for chlamydia and BV on 07/26/19. pt says she hasn't had abd, chest or flank pain. no pain w/ cough or breathing. not on exogenous hormones/contraceptives. denies f/c/s. remembers entire ride here to ED and does note still feeling lightheadedness weakness upon standing but has had assistance since passed out earlier. says urination has been ok, no frequency dysuria, no VB. no melena, brbpr or bowel complaints. - Related Data Allergies/Adverse Reactions: No Known Allergies Allergy (Verified 07/31/19 17:39) Past Medical History - General Information source: Patient, [facility] - Social History Smoking Status: Never Smoker Family History: None, Reviewed & Not Pertinent Patient has suicidal ideation: No Patient has homicidal ideation: No Renal/ Medical History: Denies: Hx Peritoneal Dialysis Review of Systems - Review of Systems Constitutional: See HPI, Malaise, Weakness, Recent illness. denies: Chills, Diaphoresis, Fever, Weight gain, Weight loss EENT: No symptoms reported. denies: Eye pain, Eye discharge, Blurred vision, Double vision, Ear pain, Ear discharge, Nose pain, Nose congestion, Throat pain, Difficulty swallowing, Throat swelling, Mouth pain, Mouth swelling, Dental problem, Vertigo Cardiovascular: See HPI, Syncope, Dizziness, Lightheaded. denies: Chest pain, Palpitations, Heart racing, Orthopnea, Edema, Paroxysmal Nocturnal Dysp Respiratory: No symptoms reported. denies: Cough, Hemoptysis, Short of breath, Sputum, Stridor, Wheezing Gastrointestinal: No symptoms reported, See HPI Genitourinary: No symptoms reported, See HPI Female Genitourinary: No symptoms reported, See HPI. denies: Heavy/abnormal periods, Vaginal bleeding, Painful intercourse - hasnt had sexual activity since seen early jul Musculoskeletal: No symptoms reported Skin: No symptoms reported Hematologic/Lymphatic: No symptoms reported Neurological/Psychological: No symptoms reported Physical Exam - Vital signs Vitals: Resp Pulse Ox 15 100 08/11/19 13:39 08/11/19 13:39 Interpretation: Normal - Notes Notes: +orthostatic VS a/w symptoms of dizziness upon standing - General General appearance: Appears well, Alert - HEENT Head: Normocephalic, Atraumatic Eyes: Normal. No: Pale conjunctiva, Scleral icterus Conjunctiva: No: Injected, Purulent discharge Extraocular movements intact: Yes Eyelashes: Normal Pupils: PERRL Nerve palsy: No Visual chanel normal: Yes Ears: Normal External canal: Normal Tympanic membrane: Normal Sinus: Normal Nasal: Purulent discharge Mouth/Lips: Normal Mucous membranes: Dry Pharynx: Normal. No: Erythema, Exudate, Tonsillar hypertrophy, Uvular edema Neck: Normal, Supple. No: Carotid bruit, Lymphadenopathy, Meningismus, Subcutaneous emphysema, Thyromegally - Respiratory Respiratory status: No respiratory distress Chest status: Nontender Breath sounds: Normal Chest palpation: Normal - Cardiovascular Rhythm: Regular Heart sounds: Normal auscultation Murmur: No - Abdominal Inspection: Normal Distension: No distension Bowel sounds: Normal Tenderness: Nontender Organomegaly: No organomegaly - Back Back: Normal, Nontender. No: CVA tenderness - Extremities General upper extremity: Normal inspection, Nontender, Normal color, Normal ROM, Normal temperature General lower extremity: Normal inspection, Nontender, Normal color, Normal ROM, Normal temperature, Normal weight bearing. No: Kristen's sign - Neurological Neuro grossly intact: Yes Cognition: Normal Orientation: AAOx4 [place] Coma Scale Eye Opening: Spontaneous [place] Coma Scale Verbal: Oriented [place] Coma Scale Motor: Obeys Commands [place] Coma Scale Total: 15 Speech: Normal Motor strength normal: LUE, RUE, LLE, RLE Sensory: Normal - Psychological Associated symptoms: Normal affect, Normal mood - Skin Skin Temperature: Warm Skin Moisture: Dry Skin Color: Normal Course - Re-evaluation Re-evalutation: reviewed today's labs and recent (-) UPT 07/26/19. today UA shows no signs of infection, does have + some ketones c/w dehydrated appearing on clinical exam and w/ +orthostasis, finished EMS liter of fluids, gave second liter. po challenged. discussed outgoing plan w/ patient. completing this note after day of encounter noting medical staff services manager note that pt "not satisfied w/ MD care". at time of care i was unaware of this, and thought she and i had plan for her follow up and that she felt much better after IVF and would cont to stay hydrated. did have T 100.9 while here gave acetaminophen 975. - Vital Signs Vital signs: Temp Pulse Resp BP Pulse Ox 100.9 F H 20 96/58 L 100 08/11/19 20:48 08/11/19 16:01 08/11/19 16:00 08/11/19 16:01 - Laboratory Result Diagrams: 08/11/19 13:42 08/11/19 13:42 Laboratory results interpreted by me: 08/11/19 08/11/19 08/11/19 13:42 13:42 16:50 WBC 2.9 L RBC 5.33 H MCV 72 L MCH 23.3 L RDW 16.9 H Potassium 3.5 L AST 119 H Creatine Kinase 317 H Urine Protein 100 H Urine Ketones 20 H Urine Blood LARGE H Ur Leukocyte Esterase TRACE H Discharge - Discharge Clinical Impression: Vasovagal near syncope, Mild dehydration Fever Qualifiers: Fever type: unspecified Qualified Code(s): R50.9 - Fever, unspecified Condition: Good Disposition: HOME, SELF-CARE Additional Instructions: Today you look dehydrated when we evaluated you in the emergency department. Your blood pressure though improved with 2 L of IV fluids and your heart rate also improved. Still after the fluids when we stood you up your heart rate increased some which shows you probably are still a little dehydrated, but as long as you are able to continue to eat and drink well and stay on top of staying hydrated then I think you will continue to feel better. You can use Gatorade or juices or water to make sure you are getting some salt in your diet as well. You can watch your urine to make sure it is clear yellow instead of or margarita which suggests it would be too concentrated and you are dehydrated. If you start to have fevers chills sweats or vomiting cannot hold down anything by mouth then he you may need to return otherwise please follow-up with your regular doctor for maintenance evaluations. Forms: Return to Work Referrals: SERENE GUZMAN MD [Primary Care Provider] - Follow up as needed
[2019-08-11] MEDS ORDERED: NORMAL SALINE 500 ML IV ONE (15:57)
[2019-08-11] MEDS ORDERED: RINGERS SOLUTION,LACTATED 1,000 ML IV ONE (15:57)
[2019-08-11 16:45] VITALS: BP 96/58
[2019-08-11 17:31] LABS: AMORPHOUS SEDIMENT,URINE TRACE /HPF; APPEARANCE,URINE SLIGHTLY-CLOUDY; BILIRUBIN,URINE NEGATIVE (NEGATIVE); COLOR,URINE YELLOW; GLUCOSE, URINE NEGATIVE (NEGATIVE); KETONES,URINE 20 mg/dL (NEGATIVE); LEUKOCYTE ESTERASE,URINE TRACE (NEGATIVE); NITRITE,URINE NEGATIVE (NEGATIVE); PROTEIN,URINE 100 mg/dL (NEGATIVE); URINE SPECIFIC GRAVITY 1.026; UROBILINOGEN,URINE NEGATIVE mg/dL (<2.0)
--- NOTE | 2019-08-11 20:18 | EKG REPORT ---
SEVERITY:- ABNORMAL ECG - SINUS RHYTHM NONSPECIFIC T ABNORMALITIES, ANTERIOR LEADS : Confirmed by: Tanesha Shelley MD 11-Aug-2019 20:17:49
[2019-08-11] MEDS ORDERED: ACETAMINOPHEN 325 MG TABLET PO ONE (20:52)
== END 2019-08-11 21:12 | disposition home or self-care (01) ==
LOC: ER 13:26
DX: R55 Syncope and collapse (principal); E86.0 Dehydration; R50.9 Fever, unspecified; R53.81 Other malaise; R05 Cough; R09.81 Nasal congestion
CPT/HCPCS: 93005; 99284; 96360; 96361; 36415; 82553; 82550; 85025; 80053; 81001; 84484; 93010; J7040; J7120

== ENCOUNTER 2019-09-02 10:51 | Emergency (ER) | payer SELFPAY ==
[2019-09-02] MEDS ORDERED: ONDANSETRON 4 MG TAB.RAPDIS PO ONE (11:05)
--- NOTE | 2019-09-02 11:06 | ER Document Report ---
ED Medical Screen (RME) - General Chief Complaint: Abdominal Pain Stated Complaint: UPPER ABDOMINAL PAIN Time Seen by Provider: 09/02/19 10:58 Primary Care Provider: SERENE GUZMAN MD [Primary Care Provider] - Follow up as needed Information source: Patient Notes: Patient presents complaining of left upper quadrant left side abdominal pain that started today with nausea. Patient denies any vomiting or diarrhea. Patient does complain of some dysuria symptoms as well as vaginal discharge. Patient does report multiple visits to the ER for similar symptoms recently. Patient has been treated for chlamydia recently and was supposed to be taking antibiotics for UTI although states that she did not take them initially because she felt like she was taking other antibiotics at this time but then restarted taking the Macrobid recently. I have greeted and performed a rapid initial assessment of this patient. A comprehensive ED assessment and evaluation of the patient, analysis of test results and completion of the medical decision making process will be conducted by additional ED providers. TRAVEL OUTSIDE OF THE [place] IN LAST 30 DAYS: No - Related Data Allergies/Adverse Reactions: No Known Allergies Allergy (Verified 07/31/19 17:39) Past Medical History Renal/ Medical History: Denies: Hx Peritoneal Dialysis Physical Exam - Vital signs Vitals: Temp Pulse Resp BP Pulse Ox 98.8 F 80 16 118/82 98 09/02/19 10:55 09/02/19 10:55 09/02/19 10:55 09/02/19 10:55 09/02/19 10:55 - General General appearance: Appears well, Alert Notes: Left upper quadrant tenderness, no CVA tenderness Course - Vital Signs Vital signs: Temp Pulse Resp BP Pulse Ox 98.8 F 80 16 118/82 98 09/02/19 10:55 09/02/19 10:55 09/02/19 10:55 09/02/19 10:55 09/02/19 10:55 Doctor's Discharge - Discharge Referrals: SERENE GUZMAN MD [Primary Care Provider] - Follow up as needed
[2019-09-02 11:35] LABS: APPEARANCE,URINE CLEAR; BILIRUBIN,URINE NEGATIVE (NEGATIVE); COLOR,URINE YELLOW; GLUCOSE, URINE NEGATIVE (NEGATIVE); HEMATOCRIT 39.5 % (36.0-47.0); HEMOGLOBIN 12.9 g/dL (12.0-15.5); KETONES,URINE NEGATIVE (NEGATIVE); LEUKOCYTE ESTERASE,URINE TRACE (NEGATIVE); MEAN CORPUSCULAR HEMOGLOBIN 23.8 pg (27.0-33.4); MEAN CORPUSCULAR HGB CONC 32.7 g/dL (32.0-36.0); MEAN CORPUSCULAR VOLUME 73 fl (80-97); NITRITE,URINE NEGATIVE (NEGATIVE); PLATELET COUNT 271 10^3/uL (150-450); PROTEIN,URINE NEGATIVE (NEGATIVE); RED BLOOD COUNT 5.43 10^6/uL (3.72-5.28); RED CELL DISTRIBUTION WIDTH 16.6 % (11.5-14.0); URINE SPECIFIC GRAVITY 1.015; UROBILINOGEN,URINE NEGATIVE mg/dL (<2.0); WHITE BLOOD COUNT 4.5 10^3/uL (4.0-10.5)
[2019-09-02 11:49] LABS: ALBUMIN 4.9 g/dL (3.5-5.0); ALKALINE PHOSPHATASE 108 U/L (38-126); ANION GAP 11 (5-19); ASPARTATE AMINO TRANSFERASE 175 U/L (14-36); BILIRUBIN,DIRECT 0.3 mg/dL (0.0-0.4); BILIRUBIN,TOTAL 0.7 mg/dL (0.2-1.3); BLOOD UREA NITROGEN 5 mg/dL (7-20); CARBON DIOXIDE 26 mmol/L (22-30); CHLORIDE 102 mmol/L (98-107); GLUCOSE 87 mg/dL (75-110); POTASSIUM 4.5 mmol/L (3.6-5.0); TOTAL PROTEIN 8.6 g/dL (6.3-8.2)
[2019-09-02 12:28] LABS: ABSOLUTE LYMPHOCYTES# (MANUAL) 1.6 10^3/uL (0.5-4.7); ABSOLUTE MONOCYTES # (MANUAL) 0.9 10^3/uL (0.1-1.4); ANISOCYTOSIS SLIGHT; BASOPHILS % (MANUAL) 0 % (0-2); EOSINOPHILS % (MANUAL) 0 % (0-6); LYMPHOCYTES % (MANUAL) 35 % (13-45); MONOCYTES % (MANUAL) 20 % (3-13); PLATELET COMMENT ADEQUATE; SEGMENTED NEUTROPHILS % (MAN) 45 % (42-78); TOTAL CELLS COUNTED 100
[2019-09-02] MEDS ORDERED: ONDANSETRON 4 MG TAB.RAPDIS ONE (12:54)
[2019-09-02 13:52] LABS: CHLAM PCR NOT DETECTED (NOT DETECT)
--- NOTE | 2019-09-02 14:16 | ER Document Report ---
ED GI/ - General Chief Complaint: Abdominal Pain Stated Complaint: UPPER ABDOMINAL PAIN Time Seen by Provider: 09/02/19 10:58 Primary Care Provider: SERENE GUZMAN MD [ACTIVE STAFF] - Follow up as needed Notes: Patient is a 19-year-old female who presents to the emergency department with a chief complaint of left upper quadrant pain. Patient reports she has had left upper quadrant pain for the past few days but that it became worse today. Patient reports nausea without vomiting or diarrhea. Patient denies fever. Patient also reports having some dysuria and vaginal discharge. Patient reports she was treated for chlamydia last month. Patient reports she is having a light watery vaginal discharge that initially had an odor but that has subsided. Patient concern for possible bacterial vaginosis or yeast. Patient reports last menstrual cycle was in July. Patient reports she was treated for urinary tract infection last month and prescribed Macrobid in which she did not take it. Patient currently taking the Macrobid as she started to have in the dysuria. Patient denies acid reflux or belching. Patient reports she is a social drinker and estimates drinking about twice per month. Patient denies any [id number]-[id number] medications. Patient denies frequent use of Tylenol. TRAVEL OUTSIDE OF THE [place] IN LAST 30 DAYS: No - Related Data Allergies/Adverse Reactions: No Known Allergies Allergy (Verified 07/31/19 17:39) Past Medical History - General Information source: Patient - Social History Smoking Status: Current Every Day Smoker Frequency of alcohol use: Social Drug Abuse: None Lives with: Family Family History: None, Reviewed & Not Pertinent Patient has suicidal ideation: No Patient has homicidal ideation: No - Past Medical History Cardiac Medical History: Reports: None Pulmonary Medical History: Reports: None EENT Medical History: Reports: None Neurological Medical History: Reports: None Endocrine Medical History: Reports: None Renal/ Medical History: Reports: None. Denies: Hx Peritoneal Dialysis Malignancy Medical History: Reports: None GI Medical History: Reports: None Musculoskeletal Medical History: Reports None Skin Medical History: Reports None Psychiatric Medical History: Reports: None Traumatic Medical History: Reports: None Infectious Medical History: Reports: None Surgical Hx: Negative Review of Systems - Review of Systems Constitutional: No symptoms reported EENT: No symptoms reported Cardiovascular: No symptoms reported Respiratory: No symptoms reported Gastrointestinal: See HPI Genitourinary: See HPI Female Genitourinary: See HPI Musculoskeletal: No symptoms reported Skin: No symptoms reported Hematologic/Lymphatic: No symptoms reported Neurological/Psychological: No symptoms reported Physical Exam - Vital signs Vitals: Temp Pulse Resp BP Pulse Ox 98.8 F 80 16 118/82 98 09/02/19 10:55 09/02/19 10:55 09/02/19 10:55 09/02/19 10:55 09/02/19 10:55 Interpretation: Normal - Notes Notes: GENERAL: Well-appearing, well-nourished and in no acute distress. HEAD: Atraumatic, normocephalic. EYES: Pupils equal round and reactive to light, extraocular movements intact, sclera anicteric, conjunctiva are normal. ENT: Nares patent, oropharynx clear without exudates. Moist mucous membranes. NECK: Normal range of motion, supple without lymphadenopathy or JVD. LUNGS: Breath sounds clear to auscultation bilaterally and equal. No wheezes rales or rhonchi. HEART: Regular rate and rhythm without murmurs, rubs or gallops. ABDOMEN: Soft, nontender, normoactive bowel sounds. No guarding, no rebound. No masses appreciated. BACK: No cervical, thoracic, lumbar midline tenderness. No saddle anesthesia, normal distal neurovascular exam. NO CVA tenderness. GENITOURINARY: Deferred. EXTREMITIES: Normal range of motion, no pitting or edema. No clubbing or cyanosis. NEUROLOGICAL: Cranial nerves II through XII grossly intact. Normal speech, normal gait. PSYCH: Normal mood, normal affect. SKIN: Warm, Dry, normal turgor, no rashes or lesions noted. Course - Re-evaluation Re-evalutation: 09/02/19 14:15 Upon initial evaluation patient sitting upright on stretcher no acute distress. Patient reports she developed left upper quadrant pain a few days ago which became worse today. Patient's AST and ALT are slightly elevated when compared to previous of blood work that was drawn about 1 month ago. Patient reports she does not take any ncxd-kkq-[id number] medications frequently, does not use Tylenol frequently and only drinks socially about twice per month. Patient concerned that she may also be developing a yeast or bacterial vaginosis infection as she does have some vaginal discharge. Will perform a pelvic examination. Patient's gonorrhea and Chlamydia testing were negative today here in the emergency depar tment. 09/02/19 17:02 Patient's pelvic specimens did show yeast as well as a bacterial vaginosis. I will treat the patient for this. I did inform the patient that her AST and ALT are slightly elevated when compared to her blood work 1 month ago. She will require strict follow-up. Patient reports she does not have health insurance. I have referred her to [facility] as well as [facility]. I reiterated the importance of follow-up as a cause of her elevated liver enzymes is not known at this time. I did give the patient strict return precautions. Patient CT was essentially negative although it did show some hepatic steatosis. Did educate the patient to refrain from taking Tylenol and other medications [id number] that are filtered through the liver. Patient to refrain from drinking alcohol. Patient verbalizes understanding. I have added on hepatitis panel to the patient's blood work. 09/02/19 17:04 - Vital Signs Vital signs: Temp Pulse Resp BP Pulse Ox 99.1 F 62 16 106/58 L 99 09/02/19 13:58 09/02/19 13:58 09/02/19 13:58 09/02/19 13:58 09/02/19 13:58 - Laboratory Result Diagrams: 09/02/19 11:15 09/02/19 11:15 Laboratory results interpreted by me: 09/02/19 09/02/19 09/02/19 11:15 11:15 11:15 RBC 5.43 H MCV 73 L MCH 23.8 L RDW 16.6 H Monocytes % (Manual) 20 H BUN 5 L AST 175 H Total Protein 8.6 H Ur Leukocyte Esterase TRACE H 09/02/19 14:14 Patient's blood work does not show significant leukocytosis or anemia. Patient does have an elevation in her AST and ALT which has increased compared to 1 month ago. Patient does not have alteration in her electrolytes or kidney function. Patient's hCG is negative and patient has a negative urinalysis. Laboratory 09/02/19 09/02/19 09/02/19 11:15 11:15 11:15 WBC 4.5 RBC 5.43 H Hgb 12.9 Hct 39.5 MCV 73 L MCH 23.8 L MCHC 32.7 RDW 16.6 H Plt Count 271 Lymph % (Auto) Not Reportable Bourbon % (Auto) Not Reportable Eos % (Auto) Not Reportable Baso % (Auto) Not Reportable Absolute Neuts (auto) Not Reportable Absolute Lymphs (auto) Not Reportable Absolute Monos (auto) Not Reportable Absolute Eos (auto) Not Reportable Absolute Basos (auto) Not Reportable Total Counted 100 Seg Neutrophils % Not Reportable Seg Neuts % (Manual) 45 Lymphocytes % (Manual) 35 Monocytes % (Manual) 20 H Eosinophils % (Manual) 0 Basophils % (Manual) 0 Abs Neuts (Manual) 2.0 Abs Lymphs (Manual) 1.6 Abs Monocytes (Manual) 0.9 Absolute Eos (Manual) 0.0 Abs Basophils (Manual) 0.0 Platelet Comment ADEQUATE Anisocytosis SLIGHT Microcytosis SLIGHT Sodium 138.7 Potassium 4.5 Chloride 102 Carbon Dioxide 26 Anion Gap 11 BUN 5 L Creatinine 0.72 Est GFR ( Amer) > 60 Est GFR (MDRD) Non-Af > 60 Glucose 87 Calcium 10.0 Total Bilirubin 0.7 Direct Bilirubin 0.3 Neonat Total Bilirubin Not Reportable Neonat Direct Bilirubin Not Reportable Neonat Indirect Bili Not Reportable AST 175 H ALT 238 Alkaline Phosphatase 108 Total Protein 8.6 H Albumin 4.9 Serum HCG, Qual NEGATIVE Urine Color Urine Appearance Urine pH Ur Specific Sodus Urine Protein Urine Glucose (UA) Urine Ketones Urine Blood Urine Nitrite Urine Bilirubin Urine Urobilinogen Ur Leukocyte Esterase Urine WBC (Auto) Urine RBC (Auto) Urine Bacteria (Auto) Squamous Epi Cells Auto Urine Mucus (Auto) Urine Ascorbic Acid Chlamydia DNA (PCR) N.gonorrhoeae DNA (PCR) 09/02/19 09/02/19 11:15 11:15 WBC RBC Hgb Hct MCV MCH MCHC RDW Plt Count Lymph % (Auto) Bourbon % (Auto) Eos % (Auto) Baso % (Auto) Absolute Neuts (auto) Absolute Lymphs (auto) Absolute Monos (auto) Absolute Eos (auto) Absolute Basos (auto) Total Counted Seg Neutrophils % Seg Neuts % (Manual) Lymphocytes % (Manual) Monocytes % (Manual) Eosinophils % (Manual) Basophils % (Manual) Abs Neuts (Manual) Abs Lymphs (Manual) Abs Monocytes (Manual) Absolute Eos (Manual) Abs Basophils (Manual) Platelet Comment Anisocytosis Microcytosis Sodium Potassium Chloride Carbon Dioxide Anion Gap BUN Creatinine Est GFR ( Amer) Est GFR (MDRD) Non-Af Glucose Calcium Total Bilirubin Direct Bilirubin Neonat Total Bilirubin Neonat Direct Bilirubin Neonat Indirect Bili AST ALT Alkaline Phosphatase Total Protein Albumin Serum HCG, Qual Urine Color YELLOW Urine Appearance CLEAR Urine pH 7.0 Ur Specific Sodus 1.015 Urine Protein NEGATIVE Urine Glucose (UA) NEGATIVE Urine Ketones NEGATIVE Urine Blood NEGATIVE Urine Nitrite NEGATIVE Urine Bilirubin NEGATIVE Urine Urobilinogen NEGATIVE Ur Leukocyte Esterase TRACE H Urine WBC (Auto) 1 Urine RBC (Auto) 3 Urine Bacteria (Auto) TRACE Squamous Epi Cells Auto 1 Urine Mucus (Auto) RARE Urine Ascorbic Acid NEGATIVE Chlamydia DNA (PCR) NOT DETECTED N.gonorrhoeae DNA (PCR) NOT DETECTED 09/02/19 14:14 - Diagnostic Test Radiology reviewed: Reports reviewed Radiology results interpreted by me: 09/02/19 16:35 Abdomen/Pelvis CT 09/02/19 14:35 IMPRESSION: No acute intra-abdominal abnormality. Procedures - Pelvic Exam Pelvic exam Time completed: 14:25 Wet prep obtained: Yes Witnessed by: RN Notes: 09/02/19 14:31 External genitalia was unremarkable without edema, erythema or lesions. There is no skin breakdown. Patient tolerated the insertion of the speculum fairly well with minimal discomfort. Was able to visualize the cervix which did reveal a large amount of thick white discharge. There is no blood within the vaginal vault or around the cervix. Discharge - Discharge Clinical Impression: Alize vaginitis, Bacterial vaginosis, Elevated liver enzymes Condition: Stable Disposition: HOME, SELF-CARE Additional Instructions: *Today you are seen the emergency department for left upper quadrant pain. Since being here in the emergency department your symptoms have subsided and you have not had any pain. We did obtain a CT of your abdomen which did show a fatty liver. My concern is that you do have elevated liver enzymes that were not present 1 month ago. I would avoid Tylenol, alcohol and other medications that filtered through the liver. Please monitor for worsening abdominal pain, vomiting repeatedly, yellowing of the whites of your eyes -if you have any of the symptoms please return to the emergency department immediately. *It was also found that you have a vaginal yeast infection. We have given you a one-time dose of Diflucan. You have also received a prescription and if you are still symptomatic please repeat this in 72 hours. *Please follow-up with the [facility] or [facility] as you do need to follow-up regarding your elevated liver enzymes. Is unsure what is causing this. This can be due to multiple causes such as alcohol, medicine, recent virus or even hepatitis. I have added on a hepatitis panel to your blood group that was drawn today. You will be contacted if this is positive. *I would refrain from sexual intercourse until your vaginal yeast infection and bacterial vaginosis are treated appropriately and symptoms have subsided. Please return the emergency department if you develop pelvic pain, fever, problems with urination or if your symptoms do not improve as expected. Liver Function Abnormality Your evaluation has shown an abnormality of your liver function. This may not be serious, but you need further testing. Abnormal liver function can be caused by alcohol, medicines, virus infections, heart failure, tumors, gallbladder problems, and many other diseases. But sometimes "abnormal" liver enzymes are "normal" -- it's just the way your liver works and there's nothing wrong. We need to be sure. If your doctor thinks the abnormal test was caused by alcohol, medicine, or a recent virus, we may just repeat the liver enzyme test later. Often, the test shows that the elevated enzymes are back to normal. Usually no treatment is necessary, except for avoiding the cause of the liver dysfunction (such as alcohol or a specific medicine). Further testing could include an ultrasound of the liver, liver scan, or perhaps a liver biopsy in difficult cases. Call the doctor if you become increasingly yellow, vomit repeatedly, begin to bruise or bleed easily, or have worsening abdominal pain. Vaginal Yeast Infection You have evidence of a yeast infection -- called "alize." A vaginal yeast infection often causes itching and discharge. While not dangerous, it can be very unpleasant. A yeast infection often follows the use of powerful antibiotics. It is more likely to occur in diabetics. The treatment now is usually a single pill of Diflucan, but also an antifungal cream or suppository may be used for a few days. You do not need to avoid sexual intercourse. Recurrences are common. You can make a recurrence less likely by wearing cotton underwear and avoiding tight clothing. For mild recurrences, you can try ubqt-nvj-[id number] creams or suppositories that are made specifically for yeast. If the symptoms do not resolve, you should follow up for re-examination. Sometimes treatment of the sexual partner is necessary if infections are recurrent. Vaginosis, Bacterial Your exam shows you have bacterial vaginosis. This condition is due to an overgrowth of bacteria in the vagina. Symptoms may include vaginal itching or pain, a smelly discharge, and sometimes burning with urination. Normally this is not transmitted by sexual contact. Vaginosis can be treated with oral or topical antibiotics. Metronidazole (Flagyl) pills are usually effective. Topical vaginal creams include Cleocin and Metro-Gel. You should avoid sexual contact until your symptoms are all better. Call the doctor if you develop pelvic pain, fever, or problems with urination, or if you don't improve as expected. Prescriptions: Fluconazole [Diflucan] 150 mg PO ONCE PRN #1 tablet PRN Reason: Metronidazole [Flagyl 500 mg Tablet] 500 mg PO BID 7 Days #14 tablet Referrals: SERENE GUZMAN MD [ACTIVE STAFF] - Follow up as needed [facility] [Provider Group] - Follow up as needed [facility] [Provider Group] - Follow up as needed
[2019-09-02 15:05] LABS: BACTERIA (WET MOUNT) 4+ BACTERIA SEEN; T.VAGINALIS (WET MOUNT) NO TRICHOMONAS SEEN; WBCS (WET MOUNT) 4+ WBCS SEEN; YEAST (WET MOUNT) YEAST SEEN
--- NOTE | 2019-09-02 16:19 | RADIOLOGY REPORT (SQ) ---
EXAM DESCRIPTION: CT ABD/PELVIS WITH IV ONLY COMPLETED DATE/TIME: 09/02/2019 3:52 pm REASON FOR STUDY: luq pain, elevated liver enzymes COMPARISON: CT of the abdomen pelvis with contrast from 02/23/2018. TECHNIQUE: CT scan of the abdomen and pelvis performed using helical scanning technique with dynamic intravenous contrast injection. No oral contrast. Images reviewed with lung, soft tissue, and bone windows. Reconstructed coronal and sagittal MPR images reviewed. Delayed images for evaluation of the urinary system also acquired. All images stored on PACS. All CT scanners at this facility use dose modulation, iterative reconstruction, and/or weight based d osing when appropriate to reduce radiation dose to as low as reasonably achievable (ALARA). [facility]: Dose Right [facility]: CareDose [facility]: Dose Right [facility]: Teradose 4D [facility]: Advanced Cooling Therapy CONTRAST TYPE AND DOSE: Contrast/concentration: Isovue 350.00 mg/ml; Total Contrast Delivered: 71.0 ml; Total Saline Delivered: 52.0 ml RENAL FUNCTION: Creatinine 0.72 milligrams/deciliter. RADIATION DOSE: CT Rad equipment meets quality standard of care and radiation dose reduction techniq ues were employed. CTDIvol: 5.0 - 5.9 mGy. DLP: 552 mGy-cm.. LIMITATIONS: None. FINDINGS: LOWER CHEST: No significant findings. No nodules or infiltrates. LIVER: The morphology of the liver is non cirrhotic. The geographic area of hypoattenuation along th e falciform ligament is nonspecific and could represent focal hepatic steatosis or a perfusion varian t. The portal veins are patent. There is no hepatic mass. SPLEEN: No splenomegaly or splenic mass. PANCREAS: No abnormality. GALLBLADDER: No abnormality that is apparent on CT. ADRENAL GLANDS: No mass or asymmetry. RIGHT KIDNEY AND URETER: No solid masses. No calcifications. No hydronephrosis or hydroureter. LEFT KIDNEY AND URETER: No solid masses. No calcifications. No hydronephrosis or hydroureter. AORTA AND VESSELS: No aneurysm or dissection of the abdominal aorta. RETROPERITONEUM: No retroperitoneal adenopathy, hemorrhage or mass. BOWEL AND PERITONEAL CAVITY: No bowel obstruction, bowel wall thickening, or pericolonic/perienteric inflammation. No mesenteric adenopathy, free intraperitoneal fluid or mesenteric/ omental inflammati on. APPENDIX: Normal. PELVIS: Free fluid in the cul de sac. There is no abnormality of the adnexa or uterus that is appare nt on CT. The urinary bladder is distended. ABDOMINAL WALL: No masses or hernias. BONES: No acute findings. OTHER: No other finding. IMPRESSION: No acute intra-abdominal abnormality. TECHNICAL DOCUMENTATION: JOB ID: [id number] Quality ID # [id number]: Final reports with documentation of one or more dose reduction techniques (e.g., Au tomated exposure control, adjustment of the mA and/or kV according to patient size, use of iterative reconstruction technique) 2010 [employer]- All Rights Reserved Reading location - IP/workstation name: [email or web address]-
[2019-09-02] MEDS ORDERED: FLUCONAZOLE 100 MG TABLET PO ONE (16:54)
[2019-09-02 17:22] VITALS: BP 126/72
[2019-09-04 10:37] LABS: HEPATITS B SURFACE ANTIGEN Negative (Negative)
[2019-09-04 11:07] LABS: HEPATITIS C VIRUS ANTIBODY <0.1 s/co ratio (0.0-0.9)
== END 2019-09-02 17:21 | disposition home or self-care (01) ==
LOC: ER 10:51
DX: N76.0 Acute vaginitis (principal); B96.89 Other specified bacterial agents as the cause of diseases classified elsewhere; B37.3 Candidiasis of vulva and vagina; R74.8 Abnormal levels of other serum enzymes; R10.10 Upper abdominal pain, unspecified; R11.0 Nausea; R30.0 Dysuria; F17.200 Nicotine dependence, unspecified, uncomplicated
CPT/HCPCS: 99284; 36415; 87210; 83690; 84703; 85025; 80053; 81001; 87491; 87591; 80074; 74177; S0119

== ENCOUNTER 2019-10-26 13:06 | Emergency (ER) | payer OTHER ==
--- NOTE | 2019-10-26 13:23 | ER Document Report ---
ED Medical Screen (RME) - General Chief Complaint: Abdominal Pain Stated Complaint: ABDOMINAL PAIN,PAINFUL URINATION Time Seen by Provider: 10/26/19 13:19 Mode of Arrival: Ambulatory Information source: Patient Notes: 19-year-old female presents to ED for complaint of abdominal pain that started yesterday. She states now it spread to the whole abdomen and to the back. She states it is been painful to urinate but it does not burn until the end of the urination. States there is blood in the urine and her last menstrual cycle was 03 of October. Patient is alert oriented patient's regular nonlabored speaking in full sentences. She states the pain is getting worse. She states the pain now is a 4 out of 5. She denies any nausea or vomiting at this time. I have greeted and performed a rapid initial assessment of this patient. A comprehensive ED assessment and evaluation of the patient, analysis of test results and completion of medical decision making process will be conducted by an additional ED providers. TRAVEL OUTSIDE OF THE [place] IN LAST 30 DAYS: No - Related Data Allergies/Adverse Reactions: No Known Allergies Allergy (Verified 10/26/19 13:19) Past Medical History Renal/ Medical History: Denies: Hx Peritoneal Dialysis Physical Exam - Vital signs Vitals: Temp Pulse Resp BP Pulse Ox 98.5 F 89 16 119/75 100 10/26/19 13:17 10/26/19 13:17 10/26/19 13:17 10/26/19 13:17 10/26/19 13:17 Course - Vital Signs Vital signs: Temp Pulse Resp BP Pulse Ox 98.5 F 89 16 119/75 100 10/26/19 13:17 10/26/19 13:17 10/26/19 13:17 10/26/19 13:17 10/26/19 13:17
[2019-10-26 14:12] LABS: ABSOLUTE BASOPHILS # (AUTO) 0.1 10^3/uL (0.0-0.2); ABSOLUTE EOSINOPHILS # (AUTO) 0.1 10^3/uL (0.0-0.6); ABSOLUTE LYMPHOCYTES (AUTO) 1.5 10^3/uL (0.5-4.7); ABSOLUTE MONOCYTES (AUTO) 0.7 10^3/uL (0.1-1.4); ABSOLUTE NEUT (AUTO) 7.5 10^3/uL (1.7-8.2); BASOPHILS % (AUTO) 0.9 % (0-2); EOSINOPHILS % (AUTO) 0.7 % (0-6); HEMATOCRIT 34.8 % (36.0-47.0); HEMOGLOBIN 11.5 g/dL (12.0-15.5); LYMPHOCYTES % (AUTO) 15.6 % (13-45); MEAN CORPUSCULAR HEMOGLOBIN 23.5 pg (27.0-33.4); MEAN CORPUSCULAR HGB CONC 33.1 g/dL (32.0-36.0); MEAN CORPUSCULAR VOLUME 71 fl (80-97); MONOCYTES % (AUTO) 7.1 % (3-13); PLATELET COUNT 324 10^3/uL (150-450); RED BLOOD COUNT 4.91 10^6/uL (3.72-5.28); RED CELL DISTRIBUTION WIDTH 15.1 % (11.5-14.0); SEGMENTED NEUTROPHILS % (AUTO) 75.7 % (42-78); TOTAL CELLS COUNTED % (AUTO) 100 %; WHITE BLOOD COUNT 9.8 10^3/uL (4.0-10.5)
[2019-10-26 14:21] LABS: APPEARANCE,URINE CLOUDY; BILIRUBIN,URINE NEGATIVE (NEGATIVE); COLOR,URINE YELLOW; GLUCOSE, URINE NEGATIVE (NEGATIVE); KETONES,URINE TRACE mg/dL (NEGATIVE); PROTEIN,URINE 100 mg/dL (NEGATIVE); URINE SPECIFIC GRAVITY 1.012; UROBILINOGEN,URINE NEGATIVE mg/dL (<2.0)
[2019-10-26 14:34] LABS: ALBUMIN 4.6 g/dL (3.5-5.0); ALKALINE PHOSPHATASE 86 U/L (38-126); ANION GAP 14 (5-19); ASPARTATE AMINO TRANSFERASE 21 U/L (14-36); BILIRUBIN,DIRECT 0.3 mg/dL (0.0-0.4); BILIRUBIN,TOTAL 0.7 mg/dL (0.2-1.3); BLOOD UREA NITROGEN 7 mg/dL (7-20); CALCIUM 9.5 mg/dL (8.4-10.2); CARBON DIOXIDE 23 mmol/L (22-30); CHLORIDE 103 mmol/L (98-107); GLUCOSE 90 mg/dL (75-110); POTASSIUM 3.7 mmol/L (3.6-5.0); TOTAL PROTEIN 8.5 g/dL (6.3-8.2)
[2019-10-26] MEDS ORDERED: CEFTRIAXONE INJ 250 MG VIAL IM ONE (15:27)
[2019-10-26] MEDS ORDERED: KETOROLAC TROMETHAMINE 60 MG/2 ML SDV IM ONE (15:29)
[2019-10-26] MEDS ORDERED: AZITHROMYCIN 1 GM SUSP PACKET PO ONE (15:39)
--- NOTE | 2019-10-26 15:43 | ER Document Report ---
Entered by HERNANDO STOKES SCRIBE 10/26/19 1411 Acting as scribe for:YAMIL CEDENO MD ED General - General Chief Complaint: Abdominal Pain Stated Complaint: ABDOMINAL PAIN,PAINFUL URINATION Time Seen by Provider: 10/26/19 13:19 Mode of Arrival: Ambulatory Information source: Patient Notes: 19-year-old female presents to the emergency department complaining of dysuria and abdominal pain that began yesterday. Patient stated that her pain is located in her lower abdominal region which radiates to her back that she describes as a pressure. Patient reports hematuria, dysuria and frequency. Patient denies nausea, HI and SI. Patient explains that she has been drinking plenty of fluids. TRAVEL OUTSIDE OF THE [place] IN LAST 30 DAYS: No - Related Data Allergies/Adverse Reactions: No Known Allergies Allergy (Verified 10/26/19 13:19) Past Medical History - General Information source: Patient - Social History Smoking Status: Current Every Day Smoker Cigarette use (# per day): Yes Chew tobacco use (# tins/day): No Frequency of alcohol use: None Drug Abuse: None Lives with: Alone Family History: None, Reviewed & Not Pertinent Patient has suicidal ideation: No Patient has homicidal ideation: No Psychiatric Medical History: Reports: Hx Anxiety, Hx Bipolar Disorder, Hx Depression Surgical Hx: Negative Review of Systems - Review of Systems Constitutional: No symptoms reported EENT: No symptoms reported Cardiovascular: No symptoms reported Respiratory: No symptoms reported Gastrointestinal: See HPI. denies: Nausea Genitourinary: See HPI, Burning, Dysuria, Frequency, Hematuria Female Genitourinary: See HPI, Last menstrual period - 10/03/2019. denies: Musculoskeletal: No symptoms reported Skin: No symptoms reported Hematologic/Lymphatic: No symptoms reported Neurological/Psychological: See HPI. denies: Homicidal ideation, Suicidal ideation -: Yes All other systems reviewed and negative Physical Exam - Vital signs Vitals: Temp Pulse Resp BP Pulse Ox 98.5 F 89 16 119/75 100 10/26/19 13:17 10/26/19 13:17 10/26/19 13:17 10/26/19 13:17 10/26/19 13:17 - Notes Notes: Physical Exam: General: Alert, appears well. HEENT: Normocephalic. Atraumatic. PERRL. Extraocular movements intact. Oropharynx clear. Neck: Supple. Non-tender. Respiratory: No respiratory distress. Clear and equal breath sounds bilaterally. Cardiovascular: Regular rate and rhythm. Abdominal: Lower abdominal tenderness to palpation. No distension. Normal Bowel Sounds. Back: No gross abnormalities. Extremities: Moves all four extremities. Upper extremities: Normal inspection. Normal ROM. Lower extremities: Normal inspection. No edema. Normal ROM. Neurological: Normal cognition. AAOx4. Normal speech. Psychological: Normal affect. Normal Mood. Skin: Warm. Dry. Normal color. Course - Re-evaluation Re-evalutation: 10/26/19 15:30 Discussed with patient that I believe she has bacterial vaginosis more so than urinary tract infection. Patient reports that she has been treated for bacterial vaginosis however she continues to have the same sexual partner and has recurrence of such disease of since July 2019. So patient is advised that she is to advise her partner to also you treated as well. - Vital Signs Vital signs: Temp Pulse Resp BP Pulse Ox 98.5 F 89 16 119/75 100 10/26/19 13:17 10/26/19 13:17 10/26/19 13:17 10/26/19 13:17 10/26/19 13:17 - Laboratory Result Diagrams: 10/26/19 13:30 10/26/19 13:30 Laboratory results interpreted by me: 10/26/19 10/26/19 10/26/19 13:30 13:30 13:30 Hgb 11.5 L Hct 34.8 L MCV 71 L MCH 23.5 L RDW 15.1 H Total Protein 8.5 H Urine Protein 100 H Urine Ketones TRACE H Urine Blood LARGE H Leukocyte Esterase Rfl LARGE H Laboratory results show a urinalysis cloudy nitrite negative leukocyte esterase positive. Too many to count white cells and red blood cells. Patient test is negative. Patient has pelvic pain that also goes into her back. Patient admits to having a vaginal discharge. Discharge - Discharge Clinical Impression: Bacterial vaginosis Condition: Stable Disposition: HOME, SELF-CARE Additional Instructions: Vaginosis, Bacterial Your exam shows you have bacterial vaginosis. This condition is due to an overgrowth of bacteria in the vagina. Symptoms may include vaginal itching or pain, a smelly discharge, and sometimes burning with urination. Normally this is not transmitted by sexual contact. Vaginosis can be treated with oral or topical antibiotics. Metronidazole (Flagyl) pills are usually effective. Topical vaginal creams include Cleocin and Metro-Gel. You should avoid sexual contact until your symptoms are all better. Call the doctor if you develop pelvic pain, fever, or problems with urination, or if you don't improve as expected. Prescriptions: Fluconazole [Diflucan] 100 mg PO ASDIR 7 Days #2 tablet Doxycycline Monohydrate 100 mg PO BID #20 capsule Metronidazole [Flagyl 500 mg Tablet] 500 mg PO BID 7 Days #14 tablet Ibuprofen [Ibu] 600 mg PO TID PRN #21 tablet PRN Reason: pain I personally performed the services described in the documentation, reviewed and edited the documentation which was dictated to the scribe in my presence, and it accurately records my words and actions.
[2019-10-26] MEDS ORDERED: LIDOCAINE 1% INJ (10 MG/ML) 10 ML MDV ONE (16:12)
[2019-10-26 16:33] VITALS: BP 120/68
[2019-10-26 18:37] LABS: CHLAM PCR NOT DETECTED (NOT DETECT)
== END 2019-10-26 16:33 | disposition home or self-care (01) ==
LOC: ER 13:06
DX: N76.0 Acute vaginitis (principal); B96.89 Other specified bacterial agents as the cause of diseases classified elsewhere; R10.30 Lower abdominal pain, unspecified; R30.0 Dysuria; F17.210 Nicotine dependence, cigarettes, uncomplicated
CPT/HCPCS: 99284; 96372; 36415; 87086; 84702; 85025; 87088; 80053; 81001; 87186; 87491; 87591; J1885; Q0144; J0696

== ENCOUNTER 2019-11-15 17:33 | Emergency (ER) | payer OTHER ==
--- NOTE | 2019-11-15 17:50 | ER Document Report ---
HPI - HPI Time Seen by Provider: 11/15/19 17:38 Notes: 19-year-old female presents emergency room for a work note. Patient states she vomited after taking antibiotics on Saturday and she was sent home and told she could not return without a work note saying that she was okay to go back. Patient was being treated for bacterial vaginosis and took antibiotics on an empty stomach. She explained this to work but they insisted that she needed a work note in order to return. Denies fevers, chills, chest pain,palpitations, shortness of breath, dyspnea, nausea, vomiting, diarrhea, abdominal pain, hematuria,blurred vision, double vision, loss of vision, speech changes, LH, dizziness, syncope, headaches, wheezing, ST, URI, neck pain, weakness, bowel or bladder dysfunction, saddle anesthesia, numbness or tingling in bilateral upper or lower extremities equally, muscle paralysis, weakness in bilateral upper or lower extremities equally or rash. Denies IV drug use. - REPRODUCTIVE Reproductive: DENIES: : Past Medical History - General Information source: Patient - Social History Smoking Status: Unknown if Ever Smoked Family History: None, Reviewed & Not Pertinent Renal/ Medical History: Denies: Hx Peritoneal Dialysis Psychiatric Medical History: Reports: Hx Anxiety, Hx Bipolar Disorder, Hx Depression Vertical Provider Document - CONSTITUTIONAL Agree With Documented VS: Yes Exam Limitations: No Limitations General Appearance: WD/WN Notes: PHYSICAL EXAMINATION: reviewed vital signs by RN GENERAL: Well-appearing, well-nourished and in no acute distress. HEAD: Atraumatic, normocephalic. EYES: Pupils equal round and reactive to light, extraocular movements intact, conjunctiva are normal. ENT: Nares patent, oropharynx clear without exudates. Moist mucous membranes. NECK: Normal range of motion, supple without lymphadenopathy LUNGS: Breath sounds clear to auscultation bilaterally and equal. No wheezes rales or rhonchi. HEART: Regular rate and rhythm without murmurs ABDOMEN: Soft, nontender, nondistended abdomen. No guarding, no rebound. No masses appreciated. Female : deferred Musculoskeletal: Normal range of motion, no pitting or edema. No cyanosis. NEUROLOGICAL: Cranial nerves grossly intact. Normal speech, normal gait. Normal sensory, motor exams PSYCH: Normal mood, normal affect. SKIN: Warm, Dry, normal turgor, no rashes or lesions noted. - INFECTION CONTROL TRAVEL OUTSIDE OF THE [place] IN LAST 30 DAYS: No Course - Re-evaluation Re-evalutation: 11/15/19 17:49 Afebrile vital stable no distress. Advised to follow a bland diet, avoid any spicy foods. Patient not having any issues with her bacterial vaginosis and does not need a prescription for this. Patient denied any vomiting since the one-time event where she vomited after taking antibiotics on an empty stomach. I feel that this patient is stable and cleared to go back to work without any restrictions. After performing a Medical Screening Examination, I estimate there is LOW risk for ACUTE APPENDICITIS, BOWEL OBSTRUCTION, ACUTE CHOLECYSTITIS, PERFORATED DIVERTICULITIS, INCARCERATED HERNIA, PANCREATITIS, PELVIC INFLAMMATORY DISEASE, PERFORATED ULCER, ECTOPIC , or TUBO- OVARIAN ABSCESS, thus I consider the discharge disposition reasonable. Also, there is no evidence or peritonitis, sepsis, or toxicity. I have reevaluated this patient multiple times and no significant life threatening changes are noted. The patient and I have discussed the diagnosis and risks, and we agree with discharging home with close follow-up with the understanding that symptoms and presentations can change. We also discussed returning to the Emergency Department immediately if new or worsening symptoms occur. We have discussed the symptoms which are most concerning (e.g., bloody stool, fever, changing or w orsening pain, vomiting) that necessitate immediate return. Discharge - Discharge Clinical Impression: Vomiting Condition: Stable Disposition: HOME, SELF-CARE Instructions: Vomiting ([facility]) Additional Instructions: your vomiting resolved 3 days ago. You are able to go back to work without any restrictions. Please follow-up with your doctor as needed Return immediately for any new or worsening symptoms. Follow up with primary care provider, call tomorrow to make followup appointment. Referrals: ADRIANA ALCALA MD [ACTIVE STAFF] - Follow up as needed
[2019-11-15 18:38] VITALS: BP 134/55
== END 2019-11-15 17:58 | disposition home or self-care (01) ==
LOC: ER 17:33
DX: R11.10 Vomiting, unspecified (principal)
CPT/HCPCS: 99281

== ENCOUNTER 2019-12-15 16:07 | Emergency (ER) | payer OTHER ==
--- NOTE | 2019-12-15 16:21 | ER Document Report ---
ED Medical Screen (RME) - General Chief Complaint: Vaginal Pain Stated Complaint: VAGINAL PAIN Time Seen by Provider: 12/15/19 16:16 Mode of Arrival: Ambulatory Information source: Patient Notes: 19-year-old female presents emergency department with complaints of vaginal pain, vaginal itching, vaginal bumps and vaginal discharge for the past couple weeks. Reports history of BV and chlamydia. Reports last menstrual period was in October. Reports she is sexually active with one partner no control. Denies fever vomiting diarrhea. I have greeted and performed a rapid initial assessment of this patient. A comprehensive ED assessment and evaluation of the patient, analysis of test results and completion of the medical decision making process will be conducted by additional ED providers. TRAVEL OUTSIDE OF THE [place] IN LAST 30 DAYS: No - Related Data Allergies/Adverse Reactions: No Known Allergies Allergy (Verified 10/26/19 13:19) Past Medical History Renal/ Medical History: Denies: Hx Peritoneal Dialysis Psychiatric Medical History: Reports: Hx Anxiety, Hx Bipolar Disorder, Hx Depression Physical Exam - Vital signs Vitals: Temp Pulse Resp BP Pulse Ox 98.6 F 97 17 126/56 H 98 12/15/19 16:11 12/15/19 16:11 12/15/19 16:11 12/15/19 16:11 12/15/19 16:11 Course - Vital Signs Vital signs: Temp Pulse Resp BP Pulse Ox 98.6 F 97 17 126/56 H 98 12/15/19 16:17 12/15/19 16:11 12/15/19 16:11 12/15/19 16:11 12/15/19 16:11
--- NOTE | 2019-12-15 16:53 | ER Document Report ---
ED GI/ - General Chief Complaint: Vaginal Itching Stated Complaint: VAGINAL PAIN Time Seen by Provider: 12/15/19 16:16 Mode of Arrival: Ambulatory Notes: CHIEF COMPLAINT: Vaginal itching and discharge HPI: 19-year-old female presenting to the emergency department complaining of vaginal itching and discharge. Patient believes she has a yeast infection but took no medications outpatient for this. States she was recently treated for BV with Flagyl and believes this gave her the itching. Denies dysuria. Denies pelvic pain. ROS: See HPI - all other systems were reviewed and are otherwise negative Constitutional: no fever or recent illness GI: no vomiting, no diarrhea : no dysuria, + vaginal discharge Integumentary: no rash Allergy: no hives Musculoskeletal: no extremity pain or swelling Neurological: no incontinence of urine MEDICATIONS: I agree with the patient medications as charted by the RN. ALLERGIES: I agree with the allergies as charted by the RN. PAST MEDICAL HISTORY/PAST SURGICAL HISTORY: Reviewed and agree as charted by RN. SOCIAL HISTORY: Reviewed and agree as charted by RN. FAMILY HISTORY: No significant familial comorbid conditions directly related to patient complaint EXAM: Reviewed vital signs as charted by RN. CONSTITUTIONAL: Alert and oriented and responds appropriately to questions. Well-appearing; well-nourished, no acute distress HEAD: Normocephalic; atraumatic EYES: Conjunctivae clear, sclerae non-icteric ENT: normal nose; no rhinorrhea; moist mucous membranes NECK: Supple without meningismus CARD: symmetric distal pulses RESP: Normal chest excursion without splinting or tachypnea ABD/GI: Normal bowel sounds; non-distended; soft, non-tender, no rebound, no guarding; no palpable organomegaly or masses : Female nurse health aide present. External genitalia normal. No skin lesions noted. Pelvic Exam: No active bleeding. Small amount of a thin white discharge. Cervix appears normal. No CMT. positive fishy odor, no lesions or masses. Uterus normal size and non tender. Right/Left adnexa normal size and non tender. BACK: The back appears normal and is non-tender to palpation, there is no CVA tenderness EXT: Normal ROM in all joints; no cyanosis, no effusions, no edema SKIN: Normal color for age and race; warm; dry; good turgor; no acute lesions noted NEURO: Moves all extremities equally; Motor and sensory function intact PSYCH: The patient's mood and manner are appropriate. Grooming and personal hygiene are appropriate. MDM: 19-year-old female who took Flagyl 5 weeks ago for BV presenting with recurrent itching and discharge. Will send cultures TRAVEL OUTSIDE OF THE [place] IN LAST 30 DAYS: No - Related Data Allergies/Adverse Reactions: No Known Allergies Allergy (Verified 10/26/19 13:19) Home Medications: multivitamin Past Medical History - General Information source: Patient - Social History Smoking Status: Current Every Day Smoker Chew tobacco use (# tins/day): No Frequency of alcohol use: Occasional Drug Abuse: None Family History: None, Reviewed & Not Pertinent Patient has suicidal ideation: No Patient has homicidal ideation: No Renal/ Medical History: Denies: Hx Peritoneal Dialysis Psychiatric Medical History: Reports: Hx Anxiety, Hx Bipolar Disorder, Hx Depression Physical Exam - Vital signs Vitals: Temp Pulse Resp BP Pulse Ox 98.6 F 97 17 126/56 H 98 12/15/19 16:11 12/15/19 16:11 12/15/19 16:11 12/15/19 16:11 12/15/19 16:11 Course - Re-evaluation Re-evalutation: 12/15/19 17:24 Patient wet prep did not show definitive evidence of a yeast infection although I suspect it is certainly possible. Patient had no visible rash on her pelvic exam. She did not have any pelvic pain on exam suggesting PID. Cultures have been sent. Patient did have moderate vaginal odor suggesting BV. Has trace WBCs will place patient on Flagyl but will also write her an outpatient prescription for Diflucan she is to follow-up with [facility] for further management of symptoms - Vital Signs Vital signs: Temp Pulse Resp BP Pulse Ox 98.6 F 97 17 126/56 H 98 12/15/19 16:17 12/15/19 16:11 12/15/19 16:11 12/15/19 16:11 12/15/19 16:11 - Laboratory Laboratory results interpreted by me: 12/15/19 16:28 Urine Protein 30 H Urine Blood SMALL H Urine Urobilinogen 2.0 H Ur Leukocyte Esterase MODERATE H Discharge - Discharge Clinical Impression: Vaginal deepak, Bacterial vaginitis Condition: Stable Disposition: HOME, SELF-CARE Instructions: Vaginosis, Bacterial ([facility]) Additional Instructions: Take the Flagyl as prescribed to treat the vaginitis. Take the Diflucan if you develop recurrent symptoms of vaginal itching. As this is the second time you have presented for this you should definitely follow-up with [facility] for further management call for appointment Prescriptions: Fluconazole [Diflucan 100 Mg Tablet] 150 mg PO DAILY PRN #1 tablet PRN Reason: Metronidazole [Flagyl 500 mg Tablet] 500 mg PO BID #14 tablet Referrals: ABDULAZIZ MCCABE MD [ACTIVE STAFF] - Follow up as needed
[2019-12-15 17:06] LABS: T.VAGINALIS (WET MOUNT) NO TRICHOMONAS SEEN; WBCS (WET MOUNT) FEW WBCS SEEN; YEAST (WET MOUNT) NO YEAST SEEN
[2019-12-15 17:11] LABS: APPEARANCE,URINE CLOUDY; BILIRUBIN,URINE NEGATIVE (NEGATIVE); COLOR,URINE YELLOW; GLUCOSE, URINE NEGATIVE (NEGATIVE); KETONES,URINE NEGATIVE (NEGATIVE); LEUKOCYTE ESTERASE,URINE MODERATE (NEGATIVE); NITRITE,URINE NEGATIVE (NEGATIVE); PROTEIN,URINE 30 mg/dL (NEGATIVE); URINE SPECIFIC GRAVITY 1.028
[2019-12-15] MEDS ORDERED: FLUCONAZOLE 100 MG TABLET PO ONE (17:24)
[2019-12-15 17:52] VITALS: BP 100/62
[2019-12-15 18:31] LABS: CHLAM PCR NOT DETECTED (NOT DETECT)
== END 2019-12-15 17:53 | disposition home or self-care (01) ==
LOC: ER 16:07
DX: N76.0 Acute vaginitis (principal); B96.89 Other specified bacterial agents as the cause of diseases classified elsewhere; R10.2 Pelvic and perineal pain; F17.200 Nicotine dependence, unspecified, uncomplicated
CPT/HCPCS: 81001; 81025; 87086; 87088; 87210; 87491; 87591; 99283

== ENCOUNTER 2020-01-27 11:55 | Observation (INO) | payer OTHER ==
--- NOTE | 2020-01-27 12:30 | ER Document Report ---
ED Medical Screen (RME) - General Chief Complaint: Abdominal Pain Stated Complaint: ABDOMINAL PAIN Time Seen by Provider: 01/27/20 12:26 Mode of Arrival: Ambulatory Information source: Patient Notes: 19-year-old female presented ED for complaint of abdominal/pelvic pain x3 days. She states she did spot for couple hours yesterday due to the pain and pressure. She has not had any urinary symptoms. She is alert oriented respirations regular nonlabored speaking in full sentences. She is denies any nausea vomiting or diarrhea. She states she does smoke 3 cigarettes a day drinks occasionally once a month and last menstrual period was January 11. I have greeted and performed a rapid initial assessment of this patient. A comprehensive ED assessment and evaluation of the patient, analysis of test results and completion of medical decision making process will be conducted by an additional ED providers. TRAVEL OUTSIDE OF THE [place] IN LAST 30 DAYS: No - Related Data Allergies/Adverse Reactions: No Known Allergies Allergy (Verified 01/27/20 12:23) Past Medical History Renal/ Medical History: Denies: Hx Peritoneal Dialysis Psychiatric Medical History: Reports: Hx Anxiety, Hx Bipolar Disorder, Hx Depression Physical Exam - Vital signs Vitals: Temp Pulse Resp BP Pulse Ox 98.2 F 80 16 125/64 99 01/27/20 12:17 01/27/20 12:17 01/27/20 12:17 01/27/20 12:17 01/27/20 12:17 Course - Vital Signs Vital signs: Temp Pulse Resp BP Pulse Ox 98.2 F 80 16 125/64 99 01/27/20 12:17 01/27/20 12:17 01/27/20 12:17 01/27/20 12:17 01/27/20 12:17
[2020-01-27 13:04] LABS: ABSOLUTE BASOPHILS # (AUTO) 0.1 10^3/uL (0.0-0.2); ABSOLUTE EOSINOPHILS # (AUTO) 0.1 10^3/uL (0.0-0.6); ABSOLUTE LYMPHOCYTES (AUTO) 2.3 10^3/uL (0.5-4.7); ABSOLUTE MONOCYTES (AUTO) 0.4 10^3/uL (0.1-1.4); ABSOLUTE NEUT (AUTO) 2.5 10^3/uL (1.7-8.2); BASOPHILS % (AUTO) 1.3 % (0-2); EOSINOPHILS % (AUTO) 1.8 % (0-6); HEMATOCRIT 25.9 % (36.0-47.0); LYMPHOCYTES % (AUTO) 43.1 % (13-45); MEAN CORPUSCULAR HEMOGLOBIN 18.2 pg (27.0-33.4); MEAN CORPUSCULAR HGB CONC 30.5 g/dL (32.0-36.0); MONOCYTES % (AUTO) 7.6 % (3-13); PLATELET COUNT 315 10^3/uL (150-450); RED BLOOD COUNT 4.35 10^6/uL (3.72-5.28); RED CELL DISTRIBUTION WIDTH 19.4 % (11.5-14.0); SEGMENTED NEUTROPHILS % (AUTO) 46.2 % (42-78); TOTAL CELLS COUNTED % (AUTO) 100 %; WHITE BLOOD COUNT 5.4 10^3/uL (4.0-10.5)
[2020-01-27 13:20] LABS: ALBUMIN 4.4 g/dL (3.5-5.0); ALKALINE PHOSPHATASE 67 U/L (38-126); ANION GAP 7 (5-19); ASPARTATE AMINO TRANSFERASE 23 U/L (14-36); BILIRUBIN,TOTAL 0.4 mg/dL (0.2-1.3); BLOOD UREA NITROGEN 8 mg/dL (7-20); CALCIUM 9.4 mg/dL (8.4-10.2); CARBON DIOXIDE 24 mmol/L (22-30); CHLORIDE 107 mmol/L (98-107); GLUCOSE 91 mg/dL (75-110); POTASSIUM 3.9 mmol/L (3.6-5.0); TOTAL PROTEIN 7.7 g/dL (6.3-8.2)
[2020-01-27 13:33] LABS: ANISOCYTOSIS 2+; HELMET CELLS 1+; HYPOCHROMASIA 3+; OVALOCYTES SLIGHT; PLATELET LARGE PRESENT; POIKILOCYTOSIS 1+; SCHISTOCYTES SLIGHT; TARGET CELLS 1+; TEAR DROP CELLS SLIGHT
[2020-01-27 13:34] LABS: MEAN CORPUSCULAR VOLUME 60 fl (80-97)
[2020-01-27 13:35] LABS: HEMOGLOBIN 7.9 g/dL (12.0-15.5)
[2020-01-27 13:36] LABS: PLATELET COMMENT ADEQUATE
[2020-01-27 13:40] LABS: APPEARANCE,URINE CLEAR; BILIRUBIN,URINE NEGATIVE (NEGATIVE); COLOR,URINE LIGHT YELLOW; GLUCOSE, URINE NEGATIVE (NEGATIVE); KETONES,URINE NEGATIVE (NEGATIVE); LEUKOCYTE ESTERASE,URINE NEGATIVE (NEGATIVE); NITRITE,URINE NEGATIVE (NEGATIVE); PROTEIN,URINE NEGATIVE (NEGATIVE); URINE SPECIFIC GRAVITY 1.022; UROBILINOGEN,URINE NEGATIVE mg/dL (<2.0)
--- NOTE | 2020-01-27 13:40 | RADIOLOGY REPORT (SQ) ---
EXAM DESCRIPTION: U/S NON-OB PELVIS TV W/O DOP IMAGES COMPLETED DATE/TIME: 01/27/2020 1:19 pm REASON FOR STUDY: pelvic abdominal pain COMPARISON: None. TECHNIQUE: Dynamic and static grayscale images acquired of the pelvis via transvaginal approach and recorded on PACS. Additional selected color Doppler and spectral images recorded. LIMITATIONS: None. FINDINGS: UTERUS: The uterus measures 7.1 x 4.3 x 3.6 cm. The echotexture of the myometrium is homo geneous. ENDOMETRIAL STRIPE: The endometrium measures 4.9 mm in thickness. CERVIX: The cervix measures 2.1 cm in length. RIGHT OVARY AND DOPPLER: The right ovary measures 3.4 x 2.7 x 1.8 cm and on Doppler there is intact c olor flow within the ovarian stroma. There is no adnexal mass. LEFT OVARY AND DOPPLER: The left ovary measures 2.4 x 1.7 x 1.5 cm and on Doppler there is intact col or flow within the ovarian stroma. There is no adnexal mass. FREE FLUID: There is a trace amount of free fluid in the posterior cul de sac. OTHER: No other finding. IMPRESSION: 1. Normal appearance of the uterus, endometrium and adnexa. 2. Trace amount of simple free fluid in the posterior cul de sac. TECHNICAL DOCUMENTATION: JOB ID: [id number] 2010 [employer]- All Rights Reserved Rev-01/03 Reading location - IP/workstation name: [email or web address]
[2020-01-27 13:41] LABS: ADD MANUAL MICROSCOPIC YES; BACTERIA,URINE 3+ /HPF; RBC,URINE RARE /HPF
--- NOTE | 2020-01-27 13:41 | ER Document Report ---
ED GI/ - General Chief Complaint: Abdominal Pain Stated Complaint: ABDOMINAL PAIN Time Seen by Provider: 01/27/20 12:26 Mode of Arrival: Ambulatory Information source: Patient Notes: Patient presents complaining of lower pelvic pain for the past 3 days with some spotting earlier today. Patient states that she does typically have heavy menses each month in which she passes clots. Patient reports nausea without any vomiting or diarrhea. Patient denies any fever or urinary symptoms. TRAVEL OUTSIDE OF THE [place] IN LAST 30 DAYS: No - HPI Patient complains to provider of: Pelvic pain. No: Vomiting Onset: Other - 3 days Timing/Duration: Persistent Quality of pain: Sharp Pain Level: 5 Location: LLQ, Pelvis Vaginal bleeding (Compared to normal period): Spotting Sexual history: Active, Unprotected intercourse Associated symptoms: Nausea. 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 denies: Fever EENT: No symptoms reported Cardiovascular: No symptoms reported. denies: Chest pain Respiratory: No symptoms reported. denies: Cough Gastrointestinal: Abdominal pain, Nausea. denies: Diarrhea, Vomiting Genitourinary: No symptoms reported. denies: Dysuria Female Genitourinary: Vaginal bleeding Musculoskeletal: No symptoms reported. denies: Back pain Skin: No symptoms reported Hematologic/Lymphatic: No symptoms reported Neurological/Psychological: No symptoms reported Physical Exam - Vital signs Vitals: Temp Pulse Resp BP Pulse Ox 98.2 F 80 16 125/64 99 01/27/20 12:17 01/27/20 12:17 01/27/20 12:17 01/27/20 12:17 01/27/20 12:17 - General General appearance: Appears well, Alert In distress: None - HEENT Head: Normocephalic, Atraumatic Eyes: Normal Conjunctiva: Normal Nasal: Normal Mouth/Lips: Normal Mucous membranes: Normal Neck: Normal, Supple. No: Lymphadenopathy - Respiratory Respiratory status: No respiratory distress Chest status: Nontender Breath sounds: Normal. No: Rales, Rhonchi, Stridor, Wheezing Chest palpation: Normal - Cardiovascular Rhythm: Regular Heart sounds: S1 appreciated, S2 appreciated - Abdominal Inspection: Normal Distension: No distension Bowel sounds: Normal Tenderness: Tender Notes: Suprapubic tenderness, left lower pelvic tenderness - Back Back: Normal, Nontender. No: CVA tenderness - Extremities General upper extremity: Normal inspection, Normal strength General lower extremity: Normal inspection, Normal strength - Neurological Neuro grossly intact: Yes Cognition: Normal [place] Coma Scale Eye Opening: Spontaneous Kash Coma Scale Verbal: Oriented Kash Coma Scale Motor: Obeys Commands St[place] Coma Scale Total: 15 - Psychological Associated symptoms: Normal affect, Normal mood - Skin Skin Temperature: Warm Skin Moisture: Dry Skin Color: Normal Course - Re-evaluation Re-evalutation: 01/27/20 15:[address] Blanco that she recommends consultation with OB, spoke with Dr. Romero who recommends admission for patient. Dr. Romero will come down and evaluate patient in room. Patient updated regarding plan of care at this time. Patient is agreeable with waiting until the OB provider can come down and speak with her. 01/27/20 16:22 Dr. Romero did come to room and evaluate patient and plans for admission, patient is agreeable at this time. - Vital Signs Vital signs: Temp Pulse Resp BP Pulse Ox 98.2 F 70 18 102/47 L 100 01/27/20 23:47 01/27/20 23:47 01/27/20 23:47 01/27/20 23:47 01/27/20 23:47 - Laboratory Result Diagrams: 01/27/20 18:02 01/27/20 12:45 Laboratory results interpreted by me: 01/27/20 01/27/20 01/27/20 12:45 12:45 12:45 Hgb 7.9 L Hct 25.9 L MCV 60 L MCH 18.2 L MCHC 30.5 L RDW 19.4 H Beta HCG, Quant 971.17 H Urine Blood SMALL H 01/27/20 15:29 Labs- All tests 24 hr 01/27/20 01/27/20 01/27/20 12:45 12:45 12:45 WBC 5.4 RBC 4.35 Hgb 7.9 L Hct 25.9 L MCV 60 L MCH 18.2 L MCHC 30.5 L RDW 19.4 H Plt Count 315 Lymph % (Auto) 43.1 [place] % (Auto) 7.6 Eos % (Auto) 1.8 Baso % (Auto) 1.3 Absolute Neuts (auto) 2.5 Absolute Lymphs (auto) 2.3 Absolute Monos (auto) 0.4 Absolute Eos (auto) 0.1 Absolute Basos (auto) 0.1 Seg Neutrophils % 46.2 Large Platelets PRESENT Platelet Comment ADEQUATE Hypochromasia 3+ Poikilocytosis 1+ Anisocytosis 2+ Microcytosis 3+ Target Cells 1+ Tear Drop Cells SLIGHT Ovalocytes SLIGHT Helmet Cells 1+ Schistocytes SLIGHT PT INR APTT Sodium 137.7 Potassium 3.9 Chloride 107 Carbon Dioxide 24 Anion Gap 7 BUN 8 Creatinine 0.67 Est GFR ( Amer) > 60 Est GFR (MDRD) Non-Af > 60 Glucose 91 Calcium 9.4 Total Bilirubin 0.4 Direct Bilirubin 0.0 Neonat Total Bilirubin Not Reportable Neonat Direct Bilirubin Not Reportable Neonat Indirect Bili Not Reportable AST 23 ALT 13 Alkaline Phosphatase 67 Total Protein 7.7 Albumin 4.4 Beta HCG, Quant 971.17 H Total Beta HCG POSITIVE Urine Color LIGHT YELLOW Urine Appearance CLEAR Urine pH 6.0 Ur Specific Arnold 1.022 Urine Protein NEGATIVE Urine Glucose (UA) NEGATIVE Urine Ketones NEGATIVE Urine Blood SMALL H Urine Nitrite NEGATIVE Urine Bilirubin NEGATIVE Urine Urobilinogen NEGATIVE Ur Leukocyte Esterase NEGATIVE Urine RBC RARE Urine WBC 5-10 Urine Bacteria 3+ Urine Mucus 3+ Urine Ascorbic Acid NEGATIVE Blood Type Antibody Screen 01/27/20 01/27/20 12:45 14:05 WBC RBC Hgb Hct MCV MCH MCHC RDW Plt Count Lymph % (Auto) [place] % (Auto) Eos % (Auto) Baso % (Auto) Absolute Neuts (auto) Absolute Lymphs (auto) Absolute Monos (auto) Absolute Eos (auto) Absolute Basos (auto) Seg Neutrophils % Large Platelets Platelet Comment Hypochromasia Poikilocytosis Anisocytosis Microcytosis Target Cells Tear Drop Cells Ovalocytes Helmet Cells Schistocytes PT 13.9 INR 1.07 APTT 30.7 Sodium Potassium Chloride Carbon Dioxide Anion Gap BUN Creatinine Est GFR ( Amer) Est GFR (MDRD) Non-Af Glucose Calcium Total Bilirubin Direct Bilirubin Neonat Total Bilirubin Neonat Direct Bilirubin Neonat Indirect Bili AST ALT Alkaline Phosphatase Total Protein Albumin Beta HCG, Quant Total Beta HCG Urine Color Urine Appearance Urine pH Ur Specific Arnold Urine Protein Urine Glucose (UA) Urine Ketones Urine Blood Urine Nitrite Urine Bilirubin Urine Urobilinogen Ur Leukocyte Esterase Urine RBC Urine WBC Urine Bacteria Urine Mucus Urine Ascorbic Acid Blood Type O POSITIVE Antibody Screen NEGATIVE - Diagnostic Test Radiology reviewed: Reports reviewed Discharge - Discharge Clinical Impression: test positive, Pelvic pain Anemia Qualifiers: Anemia type: unspecified type Qualified Code(s): D64.9 - Anemia, unspecified Condition: Stable Disposition: ADMITTED OBSERVATION Admitting Provider: [facility] Unit Admitted: Labor and Delivery
[2020-01-27] MEDS ORDERED: ACETAMINOPHEN 325 MG TABLET PO ONE (13:42)
[2020-01-27 13:57] LABS: INTERNATIONAL RATION (INR) 1.07; PARTIAL THROMBOPLASTIN TIME 30.7 SEC (23.5-35.8); PROTHROMBIN TIME 13.9 SEC (11.4-15.4)
[2020-01-27] MEDS: 1/2 NORMAL SALINE 1,000 ML IV PRN (17:17)
--- NOTE | 2020-01-27 18:12 | PDOC H&P ---
History of Present Illness Admission Date/PCP: 01/27/20 16:59 History of Present Illness: PAULIE RIOS is a 19 year old female who presented to the ED today with vaginal bleeding and pain. I was consulted to see this patient who was found to have pos test with Quantative HCG of 971, vaginal bleedng and abdominal pain. ED provider had discussed with patient that she could have early , early ectopic or may be completing a miscarriage. Her bleeding there was very light, hemodynamically stable and her pain was found to be minimal so she was possibly going to be sent home and seen back in 2 days for repeat studies as an outpatient but her Hgb was 7.9 When I saw patient in ED she was sitting up in bed texting with pain on scale of 3/10 only "when someone pushes on by stomach" otherwise she reports no pain. She denies dizziness, lightheadedness with ambulation She states her periods have been irregular since stopping depo. Last shot May 2019. She had a period December 17- that was not as heavy as usual and she did a UPT then which was negative. SHe then started a heavy period january 10 through January 19 . It seemed heavier than normal and she usually does not have two a month. She has not been on BC. Patient reports pain day before yesterday in left lower quadrant that she thought was ovulation pain. Then it improved but had bleeding for about an hour this am which was bright red with feeling of pressure in the pelvis. Decided to come to the ED then. NO hx of Surgery No medical history [employer] Hx: chlamydia in May 2019: treated and CALIXTO negative. States was told to f/u with [employer] at that time but did not because no insurance and so she did not go Past Medical History LMP: 02/11 Psychiatric Medical History: Reports: Bipolar Disorder, Depression Social History Smoking Status: Current Every Day Smoker Electronic Cigarette use?: No Family History Family History: None, Reviewed & Not Pertinent Parental Family History Reviewed: Yes Children Family History Reviewed: Yes Sibling(s) Family History Reviewed.: Yes Medication/Allergy Home Medications: No Home Medications 01/27/20 Allergies/Adverse Reactions: No Known Allergies Allergy (Verified 01/27/20 12:23) Review of Systems Constitutional: ABSENT: chills, fever(s), headache(s), weight gain, weight loss Cardiovascular: ABSENT: chest pain, dyspnea on exertion, edema, orthropnea, palpitations Respiratory: ABSENT: cough, hemoptysis Gastrointestinal: PRESENT: as per HPI. ABSENT: constipation, diarrhea, hematemesis, hematochezia, nausea, vomiting Genitourinary: ABSENT: dysuria, hematuria Musculoskeletal: ABSENT: joint swelling Integumentary: ABSENT: rash, wounds Neurological: ABSENT: abnormal gait, abnormal speech, confusion, dizziness, focal weakness, syncope Psychiatric: ABSENT: anxiety, depression, homidical ideation, suicidal ideation Physical Exam - Physical Exam Vital Signs: Temp Pulse Resp BP Pulse Ox 98.2 F 80 16 125/64 99 01/27/20 12:23 01/27/20 12:17 01/27/20 12:17 01/27/20 12:17 01/27/20 12:17 Intake & Output 01/26/20 01/27/20 01/28/20 06:59 06:59 06:59 Weight 56.4 kg General appearance: PRESENT: no acute distress, cooperative Respiratory exam: PRESENT: clear to auscultation vane Cardiovascular exam: PRESENT: RRR, +S1, +S2 Vascular exam: PRESENT: normal capillary refill GI/Abdominal exam: PRESENT: normal bowel sounds, soft, other - No rebound or guarding. Does not complain of pain on palpation but when ask if it hurt when I palpated she reports "mild pain: pressure" on deep palpation Skin exam: PRESENT: dry, warm - Gynecological Exam Labia: normal Introitus: normal Vagina: normal, other - small amount of dark blood in vault Cervix: normal Result Laboratory Results: 01/27/20 12:45 01/27/20 12:45 01/27/20 01/27/20 01/27/20 12:45 12:45 12:45 WBC 5.4 RBC 4.35 Hgb 7.9 L Hct 25.9 L MCV 60 L MCH 18.2 L MCHC 30.5 L RDW 19.4 H Plt Count 315 Seg Neutrophils % 46.2 Sodium 137.7 Potassium 3.9 Chloride 107 Carbon Dioxide 24 Anion Gap 7 BUN 8 Creatinine 0.67 Est GFR ( Amer) > 60 Glucose 91 Calcium 9.4 Total Bilirubin 0.4 AST 23 Alkaline Phosphatase 67 Total Protein 7.7 Albumin 4.4 Urine Color LIGHT YELLOW Urine Appearance CLEAR Urine pH 6.0 Ur Specific [place] 1.022 Urine Protein NEGATIVE Urine Glucose (UA) NEGATIVE Urine Ketones NEGATIVE Urine Blood SMALL H Urine Nitrite NEGATIVE Ur Leukocyte Esterase NEGATIVE Blood Type Antibody Screen 01/27/20 14:05 WBC RBC Hgb Hct MCV MCH MCHC RDW Plt Count Seg Neutrophils % Sodium Potassium Chloride Carbon Dioxide Anion Gap BUN Creatinine Est GFR ( Amer) Glucose Calcium Total Bilirubin AST Alkaline Phosphatase Total Protein Albumin Urine Color Urine Appearance Urine pH Ur Specific Murray Urine Protein Urine Glucose (UA) Urine Ketones Urine Blood Urine Nitrite Ur Leukocyte Esterase Blood Type O POSITIVE Antibody Screen NEGATIVE Impressions: Transvaginal US 01/27/20 12:30 IMPRESSION: 1. Normal appearance of the uterus, endometrium and adnexa. 2. Trace amount of simple free fluid in the posterior cul de sac. Assessment & Plan - Diagnosis (1) Anemia Qualifiers: Anemia type: unspecified type Qualified Code(s): D64.9 - Anemia, unspecified Is this a current diagnosis for this admission?: Yes (2) Pelvic pain Is this a current diagnosis for this admission?: Yes (3) test positive Is this a current diagnosis for this admission?: Yes - Time Critical Time spent with patient: 25-34 minutes Medications reviewed and adjusted accordingly: Yes - Inpatient Certification Based on my medical assessment, after consideration of the patient's comorbidities, presenting symptoms, or acuity I expect that the services needed warrant INPATIENT care.: Yes I certify that my determination is in accordance with my understanding of Medicare's requirements for reasonable and necessary INPATIENT services [42 CFR 412.3e].: Yes - Plan Summary Plan Summary: 19 yo female with severe anemia and possible ectopic verses recent SAB or early -VSS, repeat Q 4 hrs -Up at [facility] -Will check iron studies and either give PRBCs or Iron based on repeat studies. No heavy bleeding and hemodynamically stable -US reviewed. Shows no IUP but HCG only 971. Shows no adnexal findings. -Admit for serial abdomial exams and management of severe anemia. -Patient reports poor compliance [facility] medical f/u outpatient d/t no insurance.
[2020-01-27 18:26] LABS: ABSOLUTE BASOPHILS # (AUTO) 0.1 10^3/uL (0.0-0.2); ABSOLUTE EOSINOPHILS # (AUTO) 0.1 10^3/uL (0.0-0.6); ABSOLUTE LYMPHOCYTES (AUTO) 2.4 10^3/uL (0.5-4.7); ABSOLUTE MONOCYTES (AUTO) 0.5 10^3/uL (0.1-1.4); ABSOLUTE NEUT (AUTO) 2.9 10^3/uL (1.7-8.2); ABSOLUTE RETICS # 0.045 10^6/uL (0.028-0.122); BASOPHILS % (AUTO) 0.9 % (0-2); EOSINOPHILS % (AUTO) 1.9 % (0-6); HEMATOCRIT 23.8 % (36.0-47.0); LYMPHOCYTES % (AUTO) 40.8 % (13-45); MEAN CORPUSCULAR HEMOGLOBIN 18.3 pg (27.0-33.4); MEAN CORPUSCULAR HGB CONC 31.1 g/dL (32.0-36.0); MEAN CORPUSCULAR VOLUME 59 fl (80-97); PLATELET COUNT 288 10^3/uL (150-450); RED BLOOD COUNT 4.03 10^6/uL (3.72-5.28); RETICULOCYTE COUNT (AUTO) 1.11 % (0.66-2.85); SEGMENTED NEUTROPHILS % (AUTO) 48.4 % (42-78); TOTAL CELLS COUNTED % (AUTO) 100 %; WHITE BLOOD COUNT 5.9 10^3/uL (4.0-10.5)
[2020-01-27 18:48] LABS: HEMOGLOBIN 7.4 g/dL (12.0-15.5)
[2020-01-27 18:50] LABS: ANISOCYTOSIS 2+; HYPOCHROMASIA 3+; OVALOCYTES 1+; POIKILOCYTOSIS 1+
[2020-01-27 18:51] LABS: PLATELET COMMENT ADEQUATE; TARGET CELLS SLIGHT; TEAR DROP CELLS SLIGHT
[2020-01-27 19:20] LABS: FERRITIN 3.11 ng/mL (6.2-137.0)
[2020-01-27 19:50] LABS: FOLATE 9.34 ng/mL (>2.76)
[2020-01-27] MEDS ORDERED: IRON SUCROSE COMPLEX INJ/PF 100 MG/5 ML SDV IV ONE (23:44)
[2020-01-28] MEDS: 1/2 NORMAL SALINE 1,000 ML IV PRN (00:27)
[2020-01-28 10:52] LABS: ABSOLUTE EOSINOPHILS # (AUTO) 0.1 10^3/uL (0.0-0.6); ABSOLUTE LYMPHOCYTES (AUTO) 0.8 10^3/uL (0.5-4.7); ABSOLUTE MONOCYTES (AUTO) 0.4 10^3/uL (0.1-1.4); ABSOLUTE NEUT (AUTO) 4.4 10^3/uL (1.7-8.2); BASOPHILS % (AUTO) 0.6 % (0-2); HEMATOCRIT 23.7 % (36.0-47.0); LYMPHOCYTES % (AUTO) 14.1 % (13-45); MEAN CORPUSCULAR HEMOGLOBIN 18.2 pg (27.0-33.4); MEAN CORPUSCULAR VOLUME 59 fl (80-97); MONOCYTES % (AUTO) 7.3 % (3-13); PLATELET COUNT 257 10^3/uL (150-450); RED BLOOD COUNT 4.05 10^6/uL (3.72-5.28); RED CELL DISTRIBUTION WIDTH 19.2 % (11.5-14.0); TOTAL CELLS COUNTED % (AUTO) 100 %; WHITE BLOOD COUNT 5.8 10^3/uL (4.0-10.5)
[2020-01-28 11:10] LABS: HEMOGLOBIN 7.3 g/dL (12.0-15.5)
[2020-01-28 11:17] LABS: ANISOCYTOSIS 2+; PLATELET COMMENT ADEQUATE
[2020-01-28 11:18] LABS: HYPOCHROMASIA 2+; OVALOCYTES 1+; POIKILOCYTOSIS 1+; POLYCHROMASIA 1+; TARGET CELLS 1+
[2020-01-28 11:19] LABS: TEAR DROP CELLS SLIGHT
--- NOTE | 2020-01-28 14:21 | RADIOLOGY REPORT (SQ) ---
EXAM DESCRIPTION: U/S OB TRANSVAGINAL W/O DOP IMAGES COMPLETED DATE/TIME: 01/28/2020 1:25 pm REASON FOR STUDY: rule out ectopic, Hct decreasing, Source of bleed? COMPARISON: Previous day. TECHNIQUE: Dynamic and static grayscale images acquired of the pelvis via transvaginal approach and recorded on PACS. Additional selected color Doppler and spectral images recorded. LIMITATIONS: None. FINDINGS: No intrauterine . Moderate free fluid in the pelvis. There is a hypoechoic poor ly defined lesion adjacent to the left ovary measuring just over 1 cm. There is a 2 cm cystic lesion with internal echoes in the right ovary. Normal vascular flow in both ovaries. IMPRESSION: No IUP cannot exclude ectopic. TECHNICAL DOCUMENTATION: JOB ID: [id number] 2010 [email or web address]- All Rights Reserved Rev-01/03 Reading location - IP/workstation name: [email or web address]
--- NOTE | 2020-01-28 17:34 | PDOC PROGRESS REPORT ---
Subjective Progress Note for:: 01/28/20 Subjective:: vaginal spotting, positive test, Pt reports abdominal pain has resolved and vaginal bleeding is only spotting. Reason For Visit: ANEMIA, POSSIBLE ECTOPIC Physical Exam - Physical Exam Vital Signs: Temp Pulse Resp BP Pulse Ox 98.1 F 71 16 120/51 L 100 01/28/20 16:00 01/28/20 16:00 01/28/20 16:00 01/28/20 16:00 01/28/20 16:00 Intake & Output 01/27/20 01/28/20 01/29/20 06:59 06:59 06:59 Intake Total 716 480 Balance 716 480 Weight 60 kg General appearance: PRESENT: no acute distress, well-developed, well-nourished Head exam: PRESENT: atraumatic, normocephalic Neck exam: PRESENT: full ROM. ABSENT: carotid bruit, JVD, lymphadenopathy, thyromegaly Respiratory exam: PRESENT: clear to auscultation vane, symmetrical, unlabored GI/Abdominal exam: PRESENT: other - deferred for now. Pt is very tearful and upset reportedly because she does not want to stay at [facility] ("because her people here") Rectal exam: PRESENT: deferred Extremities exam: PRESENT: full ROM. ABSENT: calf tenderness, clubbing, pedal edema Neurological exam: PRESENT: alert, awake, oriented to person, oriented to place, oriented to time, oriented to situation, CN II-XII grossly intact, other - tearful. ABSENT: motor sensory deficit Psychiatric exam: PRESENT: appropriate affect, normal mood. ABSENT: homicidal ideation, suicidal ideation - Gynecological Exam Labia: normal Introitus: normal Vagina: normal, other - small amount of dark blood in vault Cervix: normal Result Laboratory Results: 01/28/20 10:25 01/27/20 12:45 01/27/20 01/27/20 01/27/20 18:02 18:02 18:02 WBC 5.9 RBC 4.03 Hgb 7.4 L Hct 23.8 L MCV 59 L MCH 18.3 L MCHC 31.1 L RDW 19.0 H Plt Count 288 Seg Neutrophils % 48.4 Retic Count (auto) 1.11 Iron 18.0 L TIBC 476 H % Saturation 4 Transferrin 357.23 Ferritin 3.11 L Vitamin B12 540.0 Folate 9.34 01/28/20 10:25 WBC 5.8 RBC 4.05 Hgb 7.3 L Hct 23.7 L MCV 59 L MCH 18.2 L MCHC 31.0 L RDW 19.2 H Plt Count 257 Seg Neutrophils % 77.0 Retic Count (auto) Iron TIBC % Saturation Transferrin Ferritin Vitamin B12 Folate 01/27/20 12:45 Clean Catch Midstream Urine Culture - Final C.albicans/C.dubliniensis Mixed Urogenital Hali Impressions: Transvaginal US 01/27/20 12:30 IMPRESSION: 1. Normal appearance of the uterus, endometrium and adnexa. 2. Trace amount of simple free fluid in the posterior cul de sac. Obstetrics Ultrasound 01/28/20 11:18 IMPRESSION: No IUP cannot exclude ectopic. Status: Imported from PACS Assessment & Plan - Diagnosis (1) Anemia Qualifiers: Anemia type: iron deficiency Qualified Code(s): D64.9 - Anemia, unspecified Is this a current diagnosis for this admission?: Yes Plan: new onset anemia with unknown cause. She reports very heavy menses recently and reviewed ferritin is very low when is c/w poss chronic anemia. Iron infusion currently going in now. Reviewed anemia with patient and currently stable. Pt is asymptomatic. Will continue to monitor throughout the night as still concern that may have ectopic. BHCG only decreased slightly today but that was less than 24 hours. (2) Pelvic pain Is this a current diagnosis for this admission?: Yes Plan: pt states has resolved now (3) test positive Is this a current diagnosis for this admission?: Yes Plan: concern for ectopic vs SAB - Time Time Spent with patient: 15-24 minutes Medications reviewed and adjusted accordingly: Yes Anticipated discharge: Home Within: within 48 hours - Inpatient Certification Based on my medical assessment, after consideration of the patient's comorbidities, presenting symptoms, or acuity I expect that the services needed warrant INPATIENT care.: Yes I certify that my determination is in accordance with my understanding of Medicare's requirements for reasonable and necessary INPATIENT services [42 CFR 412.3e].: Yes Medical Necessity: Need Close Monitoring Due to Risk of Patient Decompensation, Need For IV Fluids, Need for Pain Control
[2020-01-28] MEDS ORDERED: FLUCONAZOLE 100 MG TABLET PO ONE (18:00)
[2020-01-29 08:32] LABS: ABSOLUTE BASOPHILS # (AUTO) 0.1 10^3/uL (0.0-0.2); ABSOLUTE EOSINOPHILS # (AUTO) 0.1 10^3/uL (0.0-0.6); ABSOLUTE LYMPHOCYTES (AUTO) 1.4 10^3/uL (0.5-4.7); ABSOLUTE MONOCYTES (AUTO) 0.6 10^3/uL (0.1-1.4); BASOPHILS % (AUTO) 1.4 % (0-2); EOSINOPHILS % (AUTO) 2.2 % (0-6); HEMATOCRIT 25.3 % (36.0-47.0); LYMPHOCYTES % (AUTO) 34.1 % (13-45); MEAN CORPUSCULAR HGB CONC 30.8 g/dL (32.0-36.0); MEAN CORPUSCULAR VOLUME 59 fl (80-97); MONOCYTES % (AUTO) 14.3 % (3-13); PLATELET COUNT 286 10^3/uL (150-450); RED BLOOD COUNT 4.32 10^6/uL (3.72-5.28); RED CELL DISTRIBUTION WIDTH 18.8 % (11.5-14.0); TOTAL CELLS COUNTED % (AUTO) 100 %; WHITE BLOOD COUNT 4.1 10^3/uL (4.0-10.5)
[2020-01-29 08:53] LABS: HEMOGLOBIN 7.8 g/dL (12.0-15.5)
[2020-01-29 08:55] LABS: ANISOCYTOSIS 2+; PLATELET COMMENT ADEQUATE
[2020-01-29 08:56] LABS: HYPOCHROMASIA SLIGHT; OVALOCYTES SLIGHT; TARGET CELLS 1+
[2020-01-29 08:57] LABS: POIKILOCYTOSIS 1+
[2020-01-29 09:16] VITALS: BP 126/52
--- NOTE | 2020-01-29 10:40 | PDOC PROGRESS REPORT ---
Subjective Progress Note for:: 01/29/20 Subjective:: I discussed pt 's condition and explained that she may have an ectopic and needs either medical or surgical treatment. Pt stated she did not trust [facility] and wanted to leave for a second opinion. I explained that this could cause her if it were to rupture but pt refused treatment and signed out AMA Reason For Visit: ANEMIA, POSSIBLE ECTOPIC Physical Exam - Physical Exam Vital Signs: Temp Pulse Resp BP Pulse Ox 97.8 F 70 18 126/52 H 100 01/29/20 08:29 01/29/20 08:29 01/29/20 08:29 01/29/20 08:29 01/29/20 08:29 Intake & Output 01/28/20 01/29/20 01/30/20 06:59 06:59 06:59 Intake Total 716 960 Balance 716 960 Weight 60 kg 54.9 kg - Gynecological Exam Labia: normal Introitus: normal Vagina: normal, other - small amount of dark blood in vault Cervix: normal Result Laboratory Results: 01/29/20 08:15 01/27/20 12:45 01/28/20 01/29/20 10:25 08:15 WBC 5.8 4.1 RBC 4.05 4.32 Hgb 7.3 L 7.8 L Hct 23.7 L 25.3 L MCV 59 L 59 L MCH 18.2 L 18.0 L MCHC 31.0 L 30.8 L RDW 19.2 H 18.8 H Plt Count 257 286 Seg Neutrophils % 77.0 48.0 01/27/20 12:45 Clean Catch Midstream Urine Culture - Final C.albicans/C.dubliniensis Mixed Urogenital Hali Impressions: Transvaginal US 01/27/20 12:30 IMPRESSION: 1. Normal appearance of the uterus, endometrium and adnexa. 2. Trace amount of simple free fluid in the posterior cul de sac. Obstetrics Ultrasound 01/28/20 11:18 IMPRESSION: No IUP cannot exclude ectopic. Assessment & Plan - Diagnosis (1) Pelvic pain Is this a current diagnosis for this admission?: Yes (2) test positive Is this a current diagnosis for this admission?: Yes (3) Vasovagal near syncope Is this a current diagnosis for this admission?: Yes - Time Time Spent with patient: 15-24 minutes Level of Care: MEDICAL Medications reviewed and adjusted accordingly: No Anticipated discharge: Other - signed out ama
== END 2020-01-29 10:36 | disposition left against medical advice (07) ==
LOC: ER 11:55 → EH 16:59 → 2N 19:20
PROVIDERS: ADMIT Obstetrics & Gynecology; ATTEND Obstetrics & Gynecology
DX: R10.2 Pelvic and perineal pain (principal); Z32.01 Encounter for pregnancy test, result positive; R55 Syncope and collapse; D50.9 Iron deficiency anemia, unspecified; N93.9 Abnormal uterine and vaginal bleeding, unspecified; N92.6 Irregular menstruation, unspecified; Z86.19 Personal history of other infectious and parasitic diseases; R11.0 Nausea; F17.210 Nicotine dependence, cigarettes, uncomplicated; Z59.7 Insufficient social insurance and welfare support
CPT/HCPCS: 99285; 86900; 86901; 36415 ×3; 87086; 86850; 82607; 82728; 82746; 84702 ×3; 83540; 83550; 85025 ×3; 85610; 85730; 85045; 80053; 81001; 84466; 76817; 76830; G0378 ×3; J1756; J3490

== ENCOUNTER 2020-02-21 12:58 | Inpatient (IN) | payer OTHER ==
[~2020-02-21 12:58] MED LIST: ROCURONIUM BROMIDE INJ 50 MG/5 ML VIAL IV ONE; SUCCINYLCHOLINE CHLORIDE INJ 200 MG/10 ML VIAL ONE
--- NOTE | 2020-02-21 14:07 | ER Document Report ---
ED Medical Screen (RME) - General Chief Complaint: Abdominal Pain Stated Complaint: LOWER ABDOMINAL PAIN Time Seen by Provider: 02/21/20 13:58 Mode of Arrival: Ambulatory Information source: Patient Notes: 19-year-old female presented to ED for complaint of abdominal pain and vaginal bleeding since February 06. She states she was seen here on 26 January with an ectopic . She states she was sent to [place] and they gave her the injection for methotrexate for the ectopic . She states they did do an ultrasound and blood work and that she went back to [place] to get a repeat examination last week they did hCG levels told her that they were going down but did not repeat the ultrasound. Patient is alert oriented respirations regular nonlabored speaking in full sentences she does have increased pain. We will get repeat blood work urine and ultrasound. I have greeted and performed a rapid initial assessment of this patient. A comprehensive ED assessment and evaluation of the patient, analysis of test results and completion of medical decision making process will be conducted by an additional ED providers. TRAVEL OUTSIDE OF THE [place] IN LAST 30 DAYS: No - Related Data Allergies/Adverse Reactions: No Known Allergies Allergy (Verified 02/21/20 13:56) Past Medical History Renal/ Medical History: Denies: Hx Peritoneal Dialysis Psychiatric Medical History: Reports: Hx Anxiety, Hx Bipolar Disorder, Hx Depression Physical Exam - Vital signs Vitals: Temp Pulse Resp BP Pulse Ox 99.1 F 85 20 128/66 H 100 02/21/20 13:04 02/21/20 13:04 02/21/20 13:04 02/21/20 13:04 02/21/20 13:04 Course - Vital Signs Vital signs: Temp Pulse Resp BP Pulse Ox 99.1 F 85 20 128/66 H 100 02/21/20 13:04 02/21/20 13:04 02/21/20 13:04 02/21/20 13:04 02/21/20 13:04
[2020-02-21 14:47] LABS: HEMATOCRIT 26.2 % (36.0-47.0); MEAN CORPUSCULAR HEMOGLOBIN 17.8 pg (27.0-33.4); MEAN CORPUSCULAR HGB CONC 30.5 g/dL (32.0-36.0); MEAN CORPUSCULAR VOLUME 59 fl (80-97); PLATELET COUNT 470 10^3/uL (150-450); RED BLOOD COUNT 4.48 10^6/uL (3.72-5.28); RED CELL DISTRIBUTION WIDTH 21.9 % (11.5-14.0); WHITE BLOOD COUNT 7.2 10^3/uL (4.0-10.5)
[2020-02-21 14:57] LABS: ALBUMIN 4.2 g/dL (3.5-5.0); ALKALINE PHOSPHATASE 78 U/L (38-126); ANION GAP 9 (5-19); ASPARTATE AMINO TRANSFERASE 15 U/L (14-36); BILIRUBIN,TOTAL 1.2 mg/dL (0.2-1.3); BLOOD UREA NITROGEN 4 mg/dL (7-20); CALCIUM 9.3 mg/dL (8.4-10.2); CARBON DIOXIDE 26 mmol/L (22-30); CHLORIDE 103 mmol/L (98-107); GLUCOSE 98 mg/dL (75-110); POTASSIUM 3.3 mmol/L (3.6-5.0); TOTAL PROTEIN 7.6 g/dL (6.3-8.2)
[2020-02-21 14:59] LABS: APPEARANCE,URINE CLOUDY; BILIRUBIN,URINE NEGATIVE (NEGATIVE); COLOR,URINE AMBER; GLUCOSE, URINE NEGATIVE (NEGATIVE); KETONES,URINE NEGATIVE (NEGATIVE); LEUKOCYTE ESTERASE,URINE MODERATE (NEGATIVE); NITRITE,URINE NEGATIVE (NEGATIVE); PROTEIN,URINE 100 mg/dL (NEGATIVE); URINE SPECIFIC GRAVITY 1.028
[2020-02-21 15:07] LABS: ABSOLUTE LYMPHOCYTES# (MANUAL) 1.1 10^3/uL (0.5-4.7); ABSOLUTE MONOCYTES # (MANUAL) 0.3 10^3/uL (0.1-1.4); BAND NEUTROPHILS % (MANUAL) 1 % (3-5); BASOPHILS % (MANUAL) 0 % (0-2); EOSINOPHILS % (MANUAL) 1 % (0-6); LYMPHOCYTES % (MANUAL) 15 % (13-45); MONOCYTES % (MANUAL) 4 % (3-13); SEGMENTED NEUTROPHILS % (MAN) 79 % (42-78); TOTAL CELLS COUNTED 100
[2020-02-21 15:08] LABS: HYPOCHROMASIA 3+; POLYCHROMASIA SLIGHT
[2020-02-21 15:09] LABS: ANISOCYTOSIS 3+; OVALOCYTES 1+; PLATELET COMMENT ADEQUATE
--- NOTE | 2020-02-21 16:40 | ER Document Report ---
ED GI/ - General Chief Complaint: Abdominal Pain Stated Complaint: LOWER ABDOMINAL PAIN Time Seen by Provider: 02/21/20 13:58 Mode of Arrival: Ambulatory Information source: Patient Notes: Patient reports having lower pelvic pain for the past week. Patient states that she was diagnosed with a ectopic in January and was given methotrexate shot on January 28. 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 Patient denies any fever, dysuria, nausea, vomiting or diarrhea. Patient denies any vaginal discharge. Patient states she did start to have some vaginal bleeding February 05 and has had daily bleeding that has varied in amount since then. Patient states that the pain at this time is constant and occasionally becomes very sharp. TRAVEL OUTSIDE OF THE [place] IN LAST 30 DAYS: No - HPI Patient complains to provider of: Pelvic pain, Vaginal bleeding. 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 Associated symptoms: denies: Diarrhea, Dysuria, Fever, Nausea, Urinary hesitancy, Urinary frequency, Urinary retention, Urinary urgency, Vaginal discharge, Vomiting Exacerbated by: Movement Relieved by: Denies Similar symptoms previously: Yes Recently seen / treated by doctor: Yes - Related Data Allergies/Adverse Reactions: No Known Allergies Allergy (Verified 02/21/20 13:56) Past Medical History - General Information source: Patient - Social History Smoking Status: Current Every Day Smoker Frequency of alcohol use: None Drug Abuse: None 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 denies: Fever EENT: No symptoms reported Cardiovascular: No symptoms reported. denies: Chest pain, Lightheaded Respiratory: No symptoms reported. denies: Cough Gastrointestinal: Abdominal pain. denies: Diarrhea, Nausea, Vomiting Genitourinary: No symptoms reported. denies: Dysuria Female Genitourinary: Vaginal bleeding. denies: Musculoskeletal: No symptoms reported. denies: Back pain Skin: No symptoms reported Hematologic/Lymphatic: No symptoms reported Neurological/Psychological: No symptoms reported Physical Exam - Vital signs Vitals: Temp Pulse Resp BP Pulse Ox 99.1 F 85 20 128/66 H 100 02/21/20 13:04 02/21/20 13:04 02/21/20 13:04 02/21/20 13:04 02/21/20 13:04 - General General appearance: Appears well, Alert In distress: None - HEENT Head: Normocephalic, Atraumatic Eyes: Normal Conjunctiva: Normal Nasal: Normal Mouth/Lips: Normal Mucous membranes: Normal Neck: Normal, Supple - Respiratory Respiratory status: No respiratory distress Chest status: Nontender Breath sounds: Normal. No: Rales, Rhonchi, Stridor, Wheezing Chest palpation: Normal - Cardiovascular Rhythm: Regular Heart sounds: S1 appreciated, S2 appreciated Murmur: No - Abdominal Inspection: Normal Distension: No distension Bowel sounds: Normal Tenderness: Tender - lower pelvic Organomegaly: No organomegaly - Back Back: Normal, Nontender. No: CVA tenderness - Extremities General upper extremity: Normal inspection, Normal strength General lower extremity: Normal inspection, Normal strength - Neurological Neuro grossly intact: Yes Cognition: Normal Kash Coma Scale Eye Opening: Spontaneous Kash Coma Scale Verbal: Oriented Kash Coma Scale Motor: Obeys Commands [place] Coma Scale Total: 15 - Psychological Associated symptoms: Normal affect, Normal mood - Skin Skin Temperature: Warm Skin Moisture: Dry Skin Color: Normal Course - Re-evaluation Re-evalutation: 02/21/20 17:12 Phone call received from radiologist Dr. Barry stating that patient has findings on ultrasound worried for a ruptured ectopic. Call then placed immediately to application development team lead rug setter velvet Dr. Drake regarding patient's verbal ultrasound results. Patient has a longstanding history of anemia. Dr. Drake recommends typing and screening for 2 units at this time and she will be down to evaluate patient. She does not advise rapid COVID test at this time. 02/21/20 18:01 Dr. Drake evaluated patient and plans to take her emergently to the OR. 02/21/20 19:07 Patient is awaiting a rapid COVID test and for the OR suite to open up - Vital Signs Vital signs: Temp Pulse Resp BP Pulse Ox 98.5 F 85 16 109/62 98 02/21/20 18:21 02/21/20 13:04 02/21/20 18:21 02/21/20 18:21 02/21/20 18:21 - Laboratory Result Diagrams: 02/21/20 14:25 02/21/20 14:25 Laboratory results interpreted by me: 02/21/20 02/21/20 02/21/20 14:25 14:25 14:25 Hgb 8.0 L Hct 26.2 L MCV 59 L MCH 17.8 L MCHC 30.5 L RDW 21.9 H Plt Count 470 H Seg Neuts % (Manual) 79 H Band Neutrophils % 1 L Potassium 3.3 L BUN 4 L Beta HCG, Quant Urine Protein 100 H Urine Blood LARGE H Urine Urobilinogen 4.0 H Ur Leukocyte Esterase MODERATE H Urine HCG, Qual POSITIVE H Crossmatch 02/21/20 02/21/20 14:25 17:25 Hgb Hct MCV MCH MCHC RDW Plt Count Seg Neuts % (Manual) Band Neutrophils % Potassium BUN Beta HCG, Quant 172.44 H Urine Protein Urine Blood Urine Urobilinogen Ur Leukocyte Esterase Urine HCG, Qual Crossmatch See Detail 02/21/20 19:07 Labs- All tests 24 hr 02/21/20 02/21/20 02/21/20 14:25 14:25 14:25 WBC 7.2 RBC 4.48 Hgb 8.0 L Hct 26.2 L MCV 59 L MCH 17.8 L MCHC 30.5 L RDW 21.9 H Plt Count 470 H Lymph % (Auto) Not Reportable [place] % (Auto) Not Reportable Eos % (Auto) Not Reportable Baso % (Auto) Not Reportable Absolute Neuts (auto) Not Reportable Absolute Lymphs (auto) Not Reportable Absolute Monos (auto) Not Reportable Absolute Eos (auto) Not Reportable Absolute Basos (auto) Not Reportable Total Counted 100 Seg Neutrophils % Not Reportable Seg Neuts % (Manual) 79 H Band Neutrophils % 1 L Lymphocytes % (Manual) 15 Monocytes % (Manual) 4 Eosinophils % (Manual) 1 Basophils % (Manual) 0 Abs Neuts (Manual) 5.8 Abs Lymphs (Manual) 1.1 Abs Monocytes (Manual) 0.3 Absolute Eos (Manual) 0.1 Abs Basophils (Manual) 0.0 Platelet Comment ADEQUATE Polychromasia SLIGHT Hypochromasia 3+ Anisocytosis 3+ Microcytosis 4+ Ovalocytes 1+ Sodium 137.7 Potassium 3.3 L Chloride 103 Carbon Dioxide 26 Anion Gap 9 BUN 4 L Creatinine 0.65 Est GFR ( Amer) > 60 Est GFR (MDRD) Non-Af > 60 Glucose 98 Calcium 9.3 Magnesium Total Bilirubin 1.2 Direct Bilirubin 0.0 Neonat Total Bilirubin Not Reportable Neonat Direct Bilirubin Not Reportable Neonat Indirect Bili Not Reportable AST 15 ALT 10 Alkaline Phosphatase 78 Total Protein 7.6 Albumin 4.2 Beta HCG, Quant Total Beta HCG Urine Color JAMARI Urine Appearance CLOUDY Urine pH 5.0 Ur Specific [place] 1.028 Urine Protein 100 H Urine Glucose (UA) NEGATIVE Urine Ketones NEGATIVE Urine Blood LARGE H Urine Nitrite NEGATIVE Urine Bilirubin NEGATIVE Urine Urobilinogen 4.0 H Ur Leukocyte Esterase MODERATE H Urine WBC (Auto) 38 Urine RBC (Auto) 20 Squamous Epi Cells Auto 19 Urine Mucus (Auto) MANY Urine Ascorbic Acid NEGATIVE Urine HCG, Qual POSITIVE H Blood Type Antibody Screen Crossmatch 02/21/20 02/21/20 14:25 17:25 WBC RBC Hgb Hct MCV MCH MCHC RDW Plt Count Lymph % (Auto) [place] % (Auto) Eos % (Auto) Baso % (Auto) Absolute Neuts (auto) Absolute Lymphs (auto) Absolute Monos (auto) Absolute Eos (auto) Absolute Basos (auto) Total Counted Seg Neutrophils % Seg Neuts % (Manual) Band Neutrophils % Lymphocytes % (Manual) Monocytes % (Manual) Eosinophils % (Manual) Basophils % (Manual) Abs Neuts (Manual) Abs Lymphs (Manual) Abs Monocytes (Manual) Absolute Eos (Manual) Abs Basophils (Manual) Platelet Comment Polychromasia Hypochromasia Anisocytosis Microcytosis Ovalocytes Sodium Potassium Chloride Carbon Dioxide Anion Gap BUN Creatinine Est GFR ( Amer) Est GFR (MDRD) Non-Af Glucose Calcium Magnesium 1.9 Total Bilirubin Direct Bilirubin Neonat Total Bilirubin Neonat Direct Bilirubin Neonat Indirect Bili AST ALT Alkaline Phosphatase Total Protein Albumin Beta HCG, Quant 172.44 H Total Beta HCG POSITIVE Urine Color Urine Appearance Urine pH Ur Specific [place] Urine Protein Urine Glucose (UA) Urine Ketones Urine Blood Urine Nitrite Urine Bilirubin Urine Urobilinogen Ur Leukocyte Esterase Urine WBC (Auto) Urine RBC (Auto) Squamous Epi Cells Auto Urine Mucus (Auto) Urine Ascorbic Acid Urine HCG, Qual Blood Type O POSITIVE Antibody Screen NEGATIVE Crossmatch See Detail - Diagnostic Test Radiology reviewed: Reports reviewed Discharge - Discharge Clinical Impression: Pelvic pain, Ruptured left tubal ectopic causing hemoperitoneum, test positive Anemia Qualifiers: Anemia type: unspecified type Qualified Code(s): D64.9 - Anemia, unspecified Condition: Serious Disposition: ADMITTED OBSERVATION Admitting Provider: [facility] Unit Admitted: Post
[2020-02-21] MEDS ORDERED: CEFTRIAXONE 1 GM/D5W RTU 1 GM/50 ML RTUPB IV ONE (16:42)
[2020-02-21] MEDS ORDERED: POTASSIUM CHLORIDE 10 MEQ TABLET.ER PO ONE (16:42)
[2020-02-21] MEDS ORDERED: FENTANYL CITRATE INJ/PF 100 MCG/2 ML AMPUL IV ONE (16:42)
[2020-02-21] MEDS ORDERED: NORMAL SALINE 250 ML IV PRN ×2 (17:07)
--- NOTE | 2020-02-21 17:09 | RADIOLOGY REPORT (SQ) ---
EXAM DESCRIPTION: U/S NON OB PEL TV W/DOPPLER IMAGES COMPLETED DATE/TIME: 02/21/2020 4:45 pm REASON FOR STUDY: Recent ectopic with increasing pain and bleeding COMPARISON: 01/28/2020 TECHNIQUE: Dynamic and static grayscale images acquired of the pelvis via transvaginal approach and recorded on PACS. Additional selected color Doppler and spectral images recorded. LIMITATIONS: None. FINDINGS: UTERUS: Contour normal. No mass. ENDOMETRIAL STRIPE: No focal or generalized thickening. No masses. CERVIX: No nabothian cysts. RIGHT OVARY AND DOPPLER: Normal size. No worrisome masses. Normal arterial vascular flow without evid ence for torsion. LEFT OVARY AND DOPPLER: Left ovary is normal in size and appearance. Normal arterial vascular flow w ithout evidence torsion. In the left adnexa adjacent to the left ovary there is a 4.8 cm heterogeneo us structure in the area of the prior presumed ectopic . FREE FLUID: There is a large amount of complex free fluid noted within the pelvis. OTHER: No other significant finding. MEASUREMENTS: UTERUS: 8.1 x 4.5 x 3.4 cm ENDOMETRIAL STRIPE: 2.4 mm RIGHT OVARY: 2.5 x 3.0 x 2.3 cm LEFT OVARY: 2.9 x 2.7 x 1.7 cm IMPRESSION: 4.8 cm heterogeneous structure in the left adnexa in the area of previously diagnosed ec topic with complex free fluid in the pelvis. These findings are most concerning for a rupt ured ectopic . COMMENT: Pertinent findings on the imaging study reported as a CRITICAL RESULT to Simon Disla NP at16:58 on 02/21/2020. Category of Critical Result: 1 TECHNICAL DOCUMENTATION: JOB ID: [id number] [employer]- All Rights Reserved Rev-01/03 Reading location - IP/workstation name: [email or web address]
--- NOTE | 2020-02-21 17:17 | PDOC H&P ---
History of Present Illness Admission Date/PCP: 02/21/2020 Patient complains of: lower abdominal pain History of Present Illness: PAULIE RIOS is 19 year old female who presented to the ED today with c/o lower abd pain and known ectopic treated with MTX at another hospital ([facility]) on 01/28 after leaving here AMA on same day. On 01/26 Quantative HCG of 971 then on 01/27 BHCG was 924 then increased to 999 on 01/28. On 01/28 she was counseled regarding the dx of Ectopic and recommendation for treatment with MTX or surgery. She declined and left AMA. Currently her pain is so severe that she is unable to ambulate and is requiring pain meds. She is She states her periods have been irregular since stopping depo. Last shot May 2019. She had a period December 17- that was not as heavy as usual and she did a UPT then which was negative. SHe then started a heavy period january 10 through January 19 . It seemed heavier than normal and she usually does not have two a month. She has not been on BC. She reports that she has been following in the ER at [facility] for repeat BHCG since being treated on 01/28. She reports that no f/u US have been done. She denies being seen by a COMPUTER LAB ASSISTANT as outpatient. She reports she was told her BHCG were falling. She reports she has only been given 1 dose of MTX in [facility] ER. NO hx of Surgery No medical history COMPUTER LAB ASSISTANT Hx: chlamydia in May 2019: treated and CALIXTO negative. States was told to f/u with COMPUTER LAB ASSISTANT at that time but did not because no insurance and so she did not go Past Medical History LMP: 02/12/2020 Menses: irregular Gynecological Infection: Yes - chlamyd Psychiatric Medical History: Reports: Bipolar Disorder, Depression Past Surgical History Past Surgical History: None Past Surgical History: Reports: None Social History Information Source: Patient Lives with: Family Smoking Status: Current Every Day Smoker Electronic Cigarette use?: No Frequency of Alcohol Use: None Hx Recreational Drug Use: No Drugs: None Hx Prescription Drug Abuse: No Family History Family History: None, Reviewed & Not Pertinent Parental Family History Reviewed: No Children Family History Reviewed: NA Sibling(s) Family History Reviewed.: NA Medication/Allergy Home Medications: No Home Medications 01/27/20 Allergies/Adverse Reactions: No Known Allergies Allergy (Verified 02/21/20 13:56) Review of Systems Constitutional: PRESENT: fever(s). ABSENT: chills, headache(s), weight gain, weight loss Cardiovascular: ABSENT: chest pain, dyspnea on exertion, edema, orthropnea, palpitations Gastrointestinal: PRESENT: abdominal pain, nausea. ABSENT: constipation, diarrhea, hematemesis, hematochezia Genitourinary: ABSENT: dysuria, hematuria Musculoskeletal: ABSENT: joint swelling Integumentary: ABSENT: rash, wounds Neurological: ABSENT: abnormal gait, abnormal speech, confusion, dizziness, focal weakness, syncope Psychiatric: PRESENT: anxiety. ABSENT: depression, homidical ideation, suicidal ideation Physical Exam - Physical Exam Vital Signs: Temp Pulse Resp BP Pulse Ox 99.1 F 85 20 128/66 H 100 02/21/20 13:04 02/21/20 13:04 02/21/20 13:04 02/21/20 13:04 02/21/20 13:04 Intake & Output 02/20/20 02/21/20 02/22/20 06:59 06:59 06:59 Weight 53.977 kg General appearance: PRESENT: no acute distress, well-developed, well-nourished Head exam: PRESENT: atraumatic, normocephalic Respiratory exam: PRESENT: clear to auscultation vane, symmetrical, unlabored Cardiovascular exam: PRESENT: RRR. ABSENT: diastolic murmur, rubs, systolic murmur GI/Abdominal exam: PRESENT: guarding, normal bowel sounds, rebound, tenderness. ABSENT: distended, mass, organolmegaly Rectal exam: PRESENT: deferred Extremities exam: PRESENT: full ROM. ABSENT: calf tenderness, clubbing, pedal edema Neurological exam: PRESENT: alert, awake, oriented to person, oriented to place, oriented to time, oriented to situation, CN II-XII grossly intact. ABSENT: motor sensory deficit Psychiatric exam: PRESENT: agitated - hypervenitilating due to pain and anxiety. Deep breathing and breatihing into bag has decreased her heart rate at this time. Awaiting on f/u BP., anxious, normal mood, other - reviewed with patient that she does have choices. She stated she did not trust [facility] but reviewed with her that we will take very good care of her and that I would not recommend that she go to another hospital.. ABSENT: homicidal ideation, suicidal ideation Skin exam: PRESENT: dry, intact, warm. ABSENT: cyanosis, rash Result Laboratory Results: 02/21/20 14:25 02/21/20 14:25 02/21/20 02/21/20 02/21/20 14:25 14:25 14:25 WBC 7.2 RBC 4.48 Hgb 8.0 L Hct 26.2 L MCV 59 L MCH 17.8 L MCHC 30.5 L RDW 21.9 H Plt Count 470 H Seg Neutrophils % Not Reportable Sodium 137.7 Potassium 3.3 L Chloride 103 Carbon Dioxide 26 Anion Gap 9 BUN 4 L Creatinine 0.65 Est GFR ( Amer) > 60 Glucose 98 Calcium 9.3 Magnesium Total Bilirubin 1.2 AST 15 Alkaline Phosphatase 78 Total Protein 7.6 Albumin 4.2 Urine Color JAMARI Urine Appearance CLOUDY Urine pH 5.0 Ur Specific [place] 1.028 Urine Protein 100 H Urine Glucose (UA) NEGATIVE Urine Ketones NEGATIVE Urine Blood LARGE H Urine Nitrite NEGATIVE Ur Leukocyte Esterase MODERATE H Urine WBC (Auto) 38 Urine RBC (Auto) 02/21/20 14:25 WBC RBC Hgb Hct MCV MCH MCHC RDW Plt Count Seg Neutrophils % Sodium Potassium Chloride Carbon Dioxide Anion Gap BUN Creatinine Est GFR ( Amer) Glucose Calcium Magnesium 1.9 Total Bilirubin AST Alkaline Phosphatase Total Protein Albumin Urine Color Urine Appearance Urine pH Ur Specific [place] Urine Protein Urine Glucose (UA) Urine Ketones Urine Blood Urine Nitrite Ur Leukocyte Esterase Urine WBC (Auto) Urine RBC (Auto) Impressions: Transvaginal US 02/21/20 14:04 IMPRESSION: 4.8 cm heterogeneous structure in the left adnexa in the area of previously diagnosed ectopic with complex free fluid in the pelvis. These findings are most concerning for a ruptured ectopic . Status: Imported from PACS Assessment & Plan - Diagnosis (1) Ruptured left tubal ectopic causing hemoperitoneum Is this a current diagnosis for this admission?: Yes Plan: Left side was the same side that was of concern last visit 01/26-01/28. She now has a large amount of blood in pelvis. However, VS appear stable for the moment. Per policy COVID testing done - rapid. If patient decompensates then will move to proceeding emergently to OR even if COVID is not back. Temp on arrival to ER was 99.1 Type and Cross for 2 units done GC/CT ordered. pt advised that she may lose her tube or ovary due to ruptured ectopic and that she may need a blood transfusion. She verbalised understanding and desires to proceed with planned procedure. (2) Anemia Qualifiers: Anemia type: iron deficiency Is this a current diagnosis for this admission?: Yes Plan: Chronic anemia. Type and cross due to concern for blood loss in OR. Consented for transfusion. She was given iron infusion on last admission. - Time Time Spent: 30 to 50 Minutes Medications reviewed and adjusted accordingly: Yes Anticipated discharge: Home Within: within 24 hours - Inpatient Certification Based on my medical assessment, after consideration of the patient's comorbidities, presenting symptoms, or acuity I expect that the services needed warrant INPATIENT care.: Yes I certify that my determination is in accordance with my understanding of Medicare's requirements for reasonable and necessary INPATIENT services [42 CFR 412.3e].: Yes Medical Necessity: Need Close Monitoring Due to Risk of Patient Decompensation, Need For IV Fluids, Need for Pain Control, Need for Surgery Post Hospital Care: 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
[2020-02-21] MEDS ORDERED: CEFAZOLIN SODIUM 2 GM in DEXTROSE 5%-WATER 50 ML IV PRN (18:30)
[2020-02-21] MEDS ORDERED: RINGERS SOLUTION,LACTATED 1,000 ML IV ONE (18:32)
[2020-02-21] MEDS ORDERED: RINGERS SOLUTION,LACTATED 1,000 ML IV PRN (18:32)
[2020-02-21] MEDS ORDERED: HYDROMORPHONE HCL INJ/PF 2 MG/ML AMPULE IV ONE (18:41)
[2020-02-21] MEDS ORDERED: FENTANYL CITRATE INJ/PF 100 MCG/2 ML AMPUL ONE (19:22)
[2020-02-21] MEDS ORDERED: PROPOFOL INJ 200 MG/20 ML VIAL IV ONE (19:23)
[2020-02-21] MEDS ORDERED: ONDANSETRON HCL INJ/PF 4 MG/2 ML SDV ONE (19:23)
[2020-02-21] MEDS ORDERED: DEXAMETHASONE SOD PHOSPHATE INJ 4 MG/1 ML VIAL ONE (19:23)
[2020-02-21] MEDS ORDERED: MORPHINE SULFATE 10 MG/ML INJ ONE (19:23)
[2020-02-21] MEDS ORDERED: MIDAZOLAM 2 MG/2 ML INJ ONE (19:23)
--- NOTE | 2020-02-21 19:39 | Brief Operative Note ---
BRIEF OPERATIVE REPORT DATE OF SURGERY: 02/21/20 TIME OF SURGERY: 20:00 PREOPERATIVE DIAGNOSIS: ruptured Ectopic likely left adnexal s/p MTX, hemosperitoneum, Iron deficiency Anemia POSTOPERATIVE DIAGNOSIS: JOY - left ruptured tubal ectopic, pelvic adhesive disease SURGEON: XAVIER VERDUZCO FINDINGS: severe pelvic adhesions with omentum and bowel adhesed over left ruptured fallopian tube and all attached to posterior surface of the uterus, left ovary normal, right ovary normal, right fallopian tube dilated and blunted, 200ml of hemoperitoneum, IVF 900ml, 100ml EBL, UOP 50ml. COMPLICATIONS: None ESTIMATED BLOOD LOSS: 100 TISSUE REMOVED OR ALTERED: Ectopic TECHNICAL PROCEDURE: Laparoscopic Left salpingectomy and removal of hemoperitoneum, Adhesiolysis
[2020-02-21] MEDS ORDERED: CEFAZOLIN INJ 1 GM VIAL ONE (19:48)
[2020-02-21 19:57] LABS: CHLAM PCR NOT DETECTED (NOT DETECT)
[2020-02-21] MEDS ORDERED: BUPIVACAINE HCL 0.25 % INJ/PF (2.5 MG/1 ML) 30 ML VIAL ONE (20:18)
[2020-02-21] MEDS ORDERED: OXYCODONE-ACETAMINOPHEN 5-325 MG TABLET PO PRN ×3 (21:49→22:20)
[2020-02-21] MEDS ORDERED: IBUPROFEN 800 MG TABLET PO PRN (21:49)
--- NOTE | 2020-02-21 21:57 | Operative Report ---
Operative Report DATE OF SURGERY: 02/21/20 PREOPERATIVE DIAGNOSIS: ruptured Ectopic likely left adnexal s/p MTX, hemosperi toneum, Iron deficiency Anemia POSTOPERATIVE DIAGNOSIS: JOY - left ruptured tubal ectopic, pelvic adhesive disease OPERATION: Laparoscopic Left salpingectomy and removal of hemoperitoneum, Adhesiolysis SURGEON: XAVIER VERDUZCO ANESTHESIA: GA TISSUE REMOVED OR ALTERED: left fallopian tube and ectopic COMPLICATIONS: None ESTIMATED BLOOD LOSS: 100 INTRAOPERATIVE FINDINGS: organized clot and adhesions appear to have been developing for some time, severe pelvic adhesions with omentum and bowel adhesed over left ruptured fallopian tube and all attached to posterior surface of the uterus, left ovary normal, right ovary normal, right fallopian tube dilated and blunted, 200ml of hemoperitoneum, IVF 900ml, 100ml EBL, UOP 50ml. PROCEDURE: Anesthesiologist: Epi Coleman CRNA, MD IV fluids: [900ml] Urine output: [50ml] Indications: [19yo with pelvic pain and vaginal bleeding with known ectopic after admission in January. SHe was treated at [facility] for ectopic and given MTX (one dose on 01/28 per patient) and levels followed weekly per patient. She reports pain became worse yesterday and severe today (mother states that pain has been present for more than a week). She presented today with severe abdominal pain and US with ruptured ectopic and blood in pelvis. Known anemia and treated with iron infusion last admission. The risks, benefits, alternatives were reviewed and she desires to proceed with planned procedure for Laparoscopic removal of ectopic and is aware that this could mean removal of tube/ovary.] Procedure: The patient was taken to the operating room where general anesthesia was obtained without difficulty. The patient was then examined under anesthesia with findings as noted above with a small anteverted uterus and left adnexal mass. She was then placed in dorsal supine lithotomy position and prepped and draped in the normal sterile fashion. [place] speculum was then placed in the patient's vagina and the anterior lip of the cervix grasped with a single-tooth tenaculum. A Humi uterine manipulator was then advanced into the uterus to provide a means of manipulation of the uterus. The speculum and tenaculum were then removed from the patient's cervix and vagina. Attention was then turned to the patient's abdomen where a 5 mm infraumbilical skin incision was then made. The Optiview trocar with 0 laparoscope was then advanced without difficulty under direct visualization with the Optiview trocar. This was performed while tenting the abdominal wall and these will fashion. Intraperitoneal placement was confirmed by the direct visualization. Pneumoperitoneum was then obtained with approximately 4 L carbon dioxide gas. Survey of the patient's abdomen and pelvis revealed findings as noted above. A second skin incision was then made approximately 3 cm superior 4 cm medial to the anterior superior iliac spine on the left and then a third skin incision was made approximately 3 cm superior to the lower incision. These incisions were made under direct visualization with the laparoscope. The second and third trochars were then advanced under direct visualization of the laparoscope at the sites. Survey of the pelvis revealed findings as above. Severe pelvic ahdesions and inflammation. THe omentum and underlying tissue were easily grasped with atraumatic graspers and removed from the underlying adnexal mass. The adnexal mass then required dissection from the posterior portion of the uterus. The left fallopian tube was severely dilated and ruptured in the mid portion. The ligasure was used to clamp and cauterize and cut the mesosalpinx extending from the fimbriated end of the left fallopian tube to the uterine cornual thus removing the left fallopian tube in its entir ety revealed normal appearing and hemstatic left ovary. The lower left abdominal incision was extended to allow removal of extopic in an endobag. All operative sites were visualized and noted to be hemostatic after application of surgicel placed throughout posterior cul de sac and posterior uterus and over the adhesed omentum and left adnexa. The 2 additional trochars on the patient's left greate r than removed under direct visualization. The 10 mm trocar was then removed after abdominal insufflation was removed. The fascia at the 10 mm trocar site was closed with 0 Vicryl on a UR 6 needle. The skin at all trocar sites were closed with 3-0 Monocryl in a subcuticular fashion with overlying Exofin. 2 Grams of Ancef were given preop. After completion of skin closure of the trocar sites attention was then turned to the vagina where the Humi uterine manipulator was removed and the bivalve speculum was replaced. Sponge lap needle and instrument counts were correct 3. The patient tolerated the procedure well and was taken to the recovery area awake and in stable condition.
[2020-02-21] MEDS ORDERED: HYDROMORPHONE HCL INJ/PF 2 MG/ML AMPULE IV PRN (22:20)
[2020-02-21] MEDS ORDERED: MEASLES,MUMPS&RUBELLA VACC/PF 0.5 ML VIAL SUBCUT PRN (22:20)
[2020-02-21] MEDS ORDERED: ACETAMINOPHEN 325 MG TABLET PO PRN (22:20)
[2020-02-21] MEDS ORDERED: DIPH/PERTUSS(ACELL)/TETANUS VAC/PF 0.5 ML SYR (>=10YO) IM PRN (22:20)
[2020-02-21] MEDS ORDERED: SIMETHICONE 80 MG TAB.CHEW PO PRN (22:20)
[2020-02-21] MEDS ORDERED: PROMETHAZINE HCL INJ 25 MG/1 ML VIAL IV PRN (22:20)
[2020-02-21] MEDS: OXYCODONE-ACETAMINOPHEN 5-325 MG TABLET PO PRN (23:06)
[2020-02-22] MEDS: RINGERS SOLUTION,LACTATED 1,000 ML IV PRN ×2 (05:01→17:14)
[2020-02-22 07:20] LABS: HEMATOCRIT 22.1 % (36.0-47.0); MEAN CORPUSCULAR HGB CONC 31.3 g/dL (32.0-36.0); MEAN CORPUSCULAR VOLUME 58 fl (80-97); PLATELET COUNT 422 10^3/uL (150-450); RED BLOOD COUNT 3.83 10^6/uL (3.72-5.28); RED CELL DISTRIBUTION WIDTH 22.2 % (11.5-14.0); WHITE BLOOD COUNT 11.9 10^3/uL (4.0-10.5)
[2020-02-22] MEDS: OXYCODONE-ACETAMINOPHEN 5-325 MG TABLET PO PRN ×4 (07:34→22:15)
[2020-02-22 08:24] LABS: HEMOGLOBIN 6.9 g/dL (12.0-15.5)
[2020-02-22 08:27] LABS: ABSOLUTE LYMPHOCYTES# (MANUAL) 0.5 10^3/uL (0.5-4.7); ABSOLUTE MONOCYTES # (MANUAL) 0.1 10^3/uL (0.1-1.4); BAND NEUTROPHILS % (MANUAL) 1 % (3-5); BASOPHILS % (MANUAL) 0 % (0-2); EOSINOPHILS % (MANUAL) 0 % (0-6); LYMPHOCYTES % (MANUAL) 4 % (13-45); MONOCYTES % (MANUAL) 1 % (3-13); SEGMENTED NEUTROPHILS % (MAN) 94 % (42-78); TOTAL CELLS COUNTED 100
[2020-02-22 08:29] LABS: ANISOCYTOSIS 3+; HYPOCHROMASIA 3+; OVALOCYTES 1+; POIKILOCYTOSIS 1+; POLYCHROMASIA 1+
[2020-02-22 08:30] LABS: SCHISTOCYTES SLIGHT; TEAR DROP CELLS 1+
[2020-02-22 08:31] LABS: PLATELET COMMENT ADEQUATE
--- NOTE | 2020-02-22 08:58 | PDOC PROGRESS REPORT ---
Subjective Progress Note for:: 02/22/20 Subjective:: pt states she feels tired Reason For Visit: ECTOPIC REPTURED Physical Exam - Physical Exam Vital Signs: Temp Pulse Resp BP Pulse Ox 98.3 F 63 18 99/45 L 100 02/22/20 07:26 02/22/20 07:26 02/22/20 07:26 02/22/20 07:26 02/22/20 07:26 Intake & Output 02/21/20 02/22/20 02/23/20 06:59 06:59 06:59 Intake Total 2240 Output Total 1150 Balance 1090 Weight 52.6 kg General appearance: PRESENT: no acute distress Respiratory exam: PRESENT: clear to auscultation vane Result Laboratory Results: 02/22/20 06:58 02/21/20 14:25 02/21/20 02/21/20 02/21/20 14:25 14:25 14:25 WBC 7.2 RBC 4.48 Hgb 8.0 L Hct 26.2 L MCV 59 L MCH 17.8 L MCHC 30.5 L RDW 21.9 H Plt Count 470 H Seg Neutrophils % Not Reportable Sodium 137.7 Potassium 3.3 L Chloride 103 Carbon Dioxide 26 Anion Gap 9 BUN 4 L Creatinine 0.65 Est GFR ( Amer) > 60 Glucose 98 Calcium 9.3 Magnesium Total Bilirubin 1.2 AST 15 Alkaline Phosphatase 78 Total Protein 7.6 Albumin 4.2 Urine Color JAMARI Urine Appearance CLOUDY Urine pH 5.0 Ur Specific [place] 1.028 Urine Protein 100 H Urine Glucose (UA) NEGATIVE Urine Ketones NEGATIVE Urine Blood LARGE H Urine Nitrite NEGATIVE Ur Leukocyte Esterase MODERATE H Urine WBC (Auto) 38 Urine RBC (Auto) 20 Blood Type Antibody Screen 02/21/20 02/21/20 02/22/20 14:25 17:25 06:58 WBC 11.9 H RBC 3.83 Hgb 6.9 L Hct 22.1 L MCV 58 L MCH 18.0 L MCHC 31.3 L RDW 22.2 H Plt Count 422 Seg Neutrophils % Not Reportable Sodium Potassium Chloride Carbon Dioxide Anion Gap BUN Creatinine Est GFR ( Amer) Glucose Calcium Magnesium 1.9 Total Bilirubin AST Alkaline Phosphatase Total Protein Albumin Urine Color Urine Appearance Urine pH Ur Specific [place] Urine Protein Urine Glucose (UA) Urine Ketones Urine Blood Urine Nitrite Ur Leukocyte Esterase Urine WBC (Auto) Urine RBC (Auto) Blood Type O POSITIVE Antibody Screen NEGATIVE Impressions: Transvaginal US 02/21/20 14:04 IMPRESSION: 4.8 cm heterogeneous structure in the left adnexa in the area of previously diagnosed ectopic with complex free fluid in the pelvis. These findings are most concerning for a ruptured ectopic . Assessment & Plan - Diagnosis (1) Iron deficiency anemia Is this a current diagnosis for this admission?: Yes (2) Pelvic pain Is this a current diagnosis for this admission?: Yes (3) Ruptured left tubal ectopic causing hemoperitoneum Is this a current diagnosis for this admission?: Yes - Time Time Spent with patient: Less than 15 minutes Level of Care: MEDICAL - Plan Summary Plan Summary: tranfuse 2 units prbc and follow
[2020-02-22] MEDS: DOCUSATE SODIUM 100 MG CAPSULE PO SCH ×2 (09:46→17:13)
[2020-02-22] MEDS ORDERED: MEASLES,MUMPS&RUBELLA VACC/PF 0.5 ML VIAL SUBCUT PRN (11:30)
[2020-02-22] MEDS ORDERED: DIPH/PERTUSS(ACELL)/TETANUS VAC/PF 0.5 ML SYR (>=10YO) IM PRN (11:30)
[2020-02-22 18:32] LABS: ABSOLUTE LYMPHOCYTES (AUTO) 1.7 10^3/uL (0.5-4.7); ABSOLUTE MONOCYTES (AUTO) 0.8 10^3/uL (0.1-1.4); ABSOLUTE NEUT (AUTO) 10.8 10^3/uL (1.7-8.2); BASOPHILS % (AUTO) 0.4 % (0-2); HEMATOCRIT 32.3 % (36.0-47.0); MEAN CORPUSCULAR HEMOGLOBIN 21.5 pg (27.0-33.4); MEAN CORPUSCULAR HGB CONC 32.6 g/dL (32.0-36.0); MONOCYTES % (AUTO) 6.2 % (3-13); PLATELET COUNT 334 10^3/uL (150-450); RED BLOOD COUNT 4.91 10^6/uL (3.72-5.28); RED CELL DISTRIBUTION WIDTH 31.5 % (11.5-14.0); SEGMENTED NEUTROPHILS % (AUTO) 80.4 % (42-78); TOTAL CELLS COUNTED % (AUTO) 100 %; WHITE BLOOD COUNT 13.5 10^3/uL (4.0-10.5)
[2020-02-22 19:24] LABS: HEMOGLOBIN 10.5 g/dL (12.0-15.5); MEAN CORPUSCULAR VOLUME 66 fl (80-97)
[2020-02-22 19:27] LABS: ANISOCYTOSIS 4+; PLATELET COMMENT ADEQUATE
[2020-02-22 19:28] LABS: HYPOCHROMASIA 2+
[2020-02-22 19:29] LABS: OVALOCYTES SLIGHT; SCHISTOCYTES 1+; TARGET CELLS SLIGHT
[2020-02-22 19:30] LABS: BURR CELLS SLIGHT
[2020-02-23] MEDS: RINGERS SOLUTION,LACTATED 1,000 ML IV PRN (03:49)
[2020-02-23] MEDS: OXYCODONE-ACETAMINOPHEN 5-325 MG TABLET PO PRN ×2 (03:57→08:04)
[2020-02-23 09:25] VITALS: BP 105/48
[2020-02-23] MEDS: DOCUSATE SODIUM 100 MG CAPSULE PO SCH (09:58)
--- NOTE | 2020-03-14 09:10 | PDOC DISCHARGE SUMMARY ---
Impression - Admit/DC Date/PCP Admission Date/Primary Care Provider: 02/21/20 18:39 Discharge Date: 02/23/20 - Discharge Diagnosis (1) Iron deficiency anemia Is this a current diagnosis for this admission?: Yes (2) Pelvic pain Is this a current diagnosis for this admission?: Yes (3) Ruptured left tubal ectopic causing hemoperitoneum Is this a current diagnosis for this admission?: Yes - Assessment Summary: Patient underwent a laparoscopic salpingectomy for the ruptured ectopic. Evacuation of hemoperitoneum was successful, postoperatively her hemoglobin had dropped to 6.9 and she was symptomatic therefore 2 units of packed red blood cells were transfused. The patient has responded well and her hemoglobin is now up to 10.5 she is ready for discharge home - Additional Information Resuscitation Status: Full Code Discharge Diet: As Tolerated Discharge Activity: Balance Activity w/Rest, No Driving, Pelvic Rest Prescriptions: Oxycodone HCl/Acetaminophen [Percocet 5-325 mg Tablet] 1 tab PO Q4HP PRN #20 tablet PRN Reason: Docusate Sodium [Colace 100 mg Capsule] 100 mg PO BID #60 capsule Ibuprofen [Ibu] 800 mg PO Q8 PRN #60 tablet PRN Reason: Home Medications: Docusate Sodium [Colace 100 mg Capsule] 100 mg PO BID #60 capsule 02/23/20 Ibuprofen [Ibu] 800 mg PO Q8 PRN #60 tablet 02/23/20 Oxycodone HCl/Acetaminophen [Percocet 5-325 mg Tablet] 1 tab PO Q4HP PRN #20 tablet 02/23/20 History of Present Illiness History of Present Illness: PAULIE RIOS is a 19 year old female Physical Exam - Physical Exam Vital Signs: Temp Pulse Resp BP Pulse Ox 97.8 F 72 15 104/48 L 100 02/23/20 07:44 02/23/20 07:44 02/23/20 07:44 02/23/20 07:44 02/23/20 07:44 Intake & Output 02/22/20 02/23/20 02/24/20 06:59 06:59 06:59 Intake Total 2240 2600 Output Total 1150 750 Balance 1090 1850 Weight 52.6 kg 59.2 kg Results Laboratory Results: WBC 13.5 10^3/uL (4.0-10.5) H 02/22/20 18:17 RBC 4.91 10^6/uL (3.72-5.28) 02/22/20 18:17 Hgb 10.5 g/dL (12.0-15.5) L D 02/22/20 18:17 Hct 32.3 % (36.0-47.0) L 02/22/20 18:17 MCV 66 fl (80-97) L D 02/22/20 18:17 MCH 21.5 pg (27.0-33.4) L 02/22/20 18:17 MCHC 32.6 g/dL (32.0-36.0) 02/22/20 18:17 RDW 31.5 % (11.5-14.0) H 02/22/20 18:17 Plt Count 334 10^3/uL (150-450) 02/22/20 18:17 Lymph % (Auto) 13.0 % (13-45) 02/22/20 18:17 [place] % (Auto) 6.2 % (3-13) 02/22/20 18:17 Eos % (Auto) 0.0 % (0-6) 02/22/20 18:17 Baso % (Auto) 0.4 % (0-2) 02/22/20 18:17 Absolute Neuts (auto) 10.8 10^3/uL (1.7-8.2) H 02/22/20 18:17 Absolute Lymphs (auto) 1.7 10^3/uL (0.5-4.7) 02/22/20 18:17 Absolute Monos (auto) 0.8 10^3/uL (0.1-1.4) 02/22/20 18:17 Absolute Eos (auto) 0.0 10^3/uL (0.0-0.6) 02/22/20 18:17 Absolute Basos (auto) 0.0 10^3/uL (0.0-0.2) 02/22/20 18:17 Total Counted 100 02/22/20 06:58 Seg Neutrophils % 80.4 % (42-78) H 02/22/20 18:17 Seg Neuts % (Manual) 94 % (42-78) H 02/22/20 06:58 Band Neutrophils % 1 % (3-5) L 02/22/20 06:58 Lymphocytes % (Manual) 4 % (13-45) L 02/22/20 06:58 Monocytes % (Manual) 1 % (3-13) L 02/22/20 06:58 Eosinophils % (Manual) 0 % (0-6) 02/22/20 06:58 Basophils % (Manual) 0 % (0-2) 02/22/20 06:58 Abs Neuts (Manual) 11.3 10^3/uL (1.7-8.2) H 02/22/20 06:58 Abs Lymphs (Manual) 0.5 10^3/uL (0.5-4.7) 02/22/20 06:58 Abs Monocytes (Manual) 0.1 10^3/uL (0.1-1.4) 02/22/20 06:58 Absolute Eos (Manual) 0.0 10^3/uL (0.0-0.6) 02/22/20 06:58 Abs Basophils (Manual) 0.0 10^3/uL (0.0-0.2) 02/22/20 06:58 Platelet Comment ADEQUATE 02/22/20 18:17 Polychromasia 1+ 02/22/20 06:58 Hypochromasia 2+ 02/22/20 18:17 Poikilocytosis 1+ 02/22/20 06:58 Anisocytosis 4+ 02/22/20 18:17 Microcytosis 3+ 02/22/20 18:17 Target Cells SLIGHT 02/22/20 18:17 Tear Drop Cells 1+ 02/22/20 06:58 Ovalocytes SLIGHT 02/22/20 18:17 [place] Cells SLIGHT 02/22/20 18:17 Acanthocytes (Spur) SLIGHT 02/22/20 06:58 Schistocytes 1+ 02/22/20 18:17 Sodium 137.7 mmol/L (137-145) 02/21/20 14:25 Potassium 3.3 mmol/L (3.6-5.0) L 02/21/20 14:25 Chloride 103 mmol/L (98-107) 02/21/20 14:25 Carbon Dioxide 26 mmol/L (22-30) 02/21/20 14:25 Anion Gap 9 (5-19) 02/21/20 14:25 BUN 4 mg/dL (7-20) L 02/21/20 14:25 Creatinine 0.65 mg/dL (0.52-1.25) 02/21/20 14:25 Est GFR ( Amer) > 60 (>60) 02/21/20 14:25 Est GFR (MDRD) Non-Af > 60 (>60) 02/21/20 14:25 Glucose 98 mg/dL (75-110) 02/21/20 14:25 Calcium 9.3 mg/dL (8.4-10.2) 02/21/20 14:25 Magnesium 1.9 mg/dL (1.6-2.3) 02/21/20 14:25 Total Bilirubin 1.2 mg/dL (0.2-1.3) 02/21/20 14:25 Direct Bilirubin 0.0 mg/dL (0.0-0.4) 02/21/20 14:25 Neonat Total Bilirubin Not Reportable 02/21/20 14:25 Neonat Direct Bilirubin Not Reportable 02/21/20 14:25 Neonat Indirect Bili Not Reportable 02/21/20 14:25 AST 15 U/L (14-36) 02/21/20 14:25 ALT 10 U/L (<35) 02/21/20 14:25 Alkaline Phosphatase 78 U/L (38-126) 02/21/20 14:25 Total Protein 7.6 g/dL (6.3-8.2) 02/21/20 14:25 Albumin 4.2 g/dL (3.5-5.0) 02/21/20 14:25 Beta HCG, Quant 68.08 mIU/mL (0.0-6.15) H 02/22/20 06:58 Total Beta HCG POSITIVE (NEGATIVE) 02/22/20 06:58 Urine Color JAMARI 02/21/20 14:25 Urine Appearance CLOUDY 02/21/20 14:25 Urine pH 5.0 (5.0-9.0) 02/21/20 14:25 Ur Specific [place] 1.028 02/21/20 14:25 Urine Protein 100 mg/dL (NEGATIVE) H 02/21/20 14:25 Urine Glucose (UA) NEGATIVE mg/dL (NEGATIVE) 02/21/20 14:25 Urine Ketones NEGATIVE mg/dL (NEGATIVE) 02/21/20 14:25 Urine Blood LARGE (NEGATIVE) H 02/21/20 14:25 Urine Nitrite NEGATIVE (NEGATIVE) 02/21/20 14:25 Urine Bilirubin NEGATIVE (NEGATIVE) 02/21/20 14:25 Urine Urobilinogen 4.0 mg/dL (<2.0) H 02/21/20 14:25 Ur Leukocyte Esterase MODERATE (NEGATIVE) H 02/21/20 14:25 Urine WBC (Auto) 38 /HPF 02/21/20 14:25 Urine RBC (Auto) 20 /HPF 02/21/20 14:25 Squamous Epi Cells Auto 19 /HPF 02/21/20 14:25 Urine Mucus (Auto) MANY /LPF 02/21/20 14:25 Urine Ascorbic Acid NEGATIVE (NEGATIVE) 02/21/20 14:25 Urine HCG, Qual POSITIVE (NEGATIVE) H 02/21/20 14:25 Chlamydia DNA (PCR) NOT DETECTED (NOT DETECT) 02/21/20 18:15 N.gonorrhoeae DNA (PCR) NOT DETECTED (NOT DETECT) 02/21/20 18:15 SARS-CoV-2 (PCR) NEGATIVE (NEGATIVE) 02/21/20 18:15 Blood Type O POSITIVE 02/21/20 17:25 Antibody Screen NEGATIVE 02/21/20 17:25 Crossmatch See Detail 02/21/20 17:25 Impressions: Transvaginal US 02/21/20 14:04 IMPRESSION: 4.8 cm heterogeneous structure in the left adnexa in the area of previously diagnosed ectopic with complex free fluid in the pelvis. These findings are most concerning for a ruptured ectopic . Stroke Is this a Stroke Patient?: No Acute Heart Failure - Is this a Heart Failure Patient?: No
== END 2020-02-23 10:25 | disposition home or self-care (01) | DRG 817 ==
LOC: ER 12:58 → OBSVTOIN 18:39 → EH 18:39 → 2N 21:51
PROVIDERS: ADMIT Student in an Organized Health Care Education/Training Program; ATTEND Student in an Organized Health Care Education/Training Program
PROC: 0UT64ZZ Resection of Left Fallopian Tube, Percutaneous Endoscopic Approach (ICD-10-PCS; 2020-02-21)
PROC: 0W9G4ZZ Drainage of Peritoneal Cavity, Percutaneous Endoscopic Approach (ICD-10-PCS; 2020-02-21)
PROC: 10T24ZZ Resection of Products of Conception, Ectopic, Percutaneous Endoscopic Approach (ICD-10-PCS; principal; 2020-02-21 19:50)
PROC: 30233N1 Transfusion of Nonautologous Red Blood Cells into Peripheral Vein, Percutaneous Approach (ICD-10-PCS; 2020-02-22)
DX: O00.102 Left tubal pregnancy without intrauterine pregnancy (principal); K66.1 Hemoperitoneum; N73.6 Female pelvic peritoneal adhesions (postinfective); D50.9 Iron deficiency anemia, unspecified; F31.9 Bipolar disorder, unspecified; F17.200 Nicotine dependence, unspecified, uncomplicated; Z86.19 Personal history of other infectious and parasitic diseases; Z03.818 Encounter for observation for suspected exposure to other biological agents ruled out
CPT/HCPCS: 36415; 36430; 76830; 80053; 81001; 81025; 83735; 840; 84702; 85025; 86850; 86900; 86901; 86920; 87086; 87088; 87491; 87591; 87635; 88305; 93976; 94799; 96365; 96375; 99140; 99285; C9803; J0330; J0690; J0696; J1100; J1170; J2250; J2270; J2405; J2550; J2704; J3010; J3490; J7120; P9016

== ENCOUNTER 2020-08-29 15:24 | Emergency (ER) | payer SELFPAY ==
[2020-08-29 15:39] VITALS: BP 119/68
--- NOTE | 2020-08-29 17:43 | ER Document Report ---
HPI - HPI Time Seen by Provider: 08/29/20 17:38 Notes: CHIEF COMPLAINT: Upper respiratory symptoms Covid concern HPI: 20-year-old female presenting for concern for Covid. Over the last 3 days she has had runny nose, cough, headache and body ache. 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 Patient wanted to get tested. No shortness of breath no abdominal pain nausea or vomiting ROS: See HPI - all other systems were reviewed and are otherwise negative Constitutional: no fever Eyes: no drainage, no blurred vision ENT: + runny nose, no sore throat Cardiovascular: no chest pain Resp: no SOB, + cough GI: no vomiting, no diarrhea, no abdominal pain : no dysuria Integumentary: no rash Allergy: no hives Musculoskeletal: no extremity pain or swelling, positive myalgia Neurological: no numbness/tingling, no weakness MEDICATIONS: I agree with the patient medications as charted by the RN. ALLERGIES: I agree with the allergies as charted by the RN. PAST MEDICAL HISTORY/PAST SURGICAL HISTORY: Reviewed and agree as charted by RN. SOCIAL HISTORY: Reviewed and agree as charted by RN. FAMILY HISTORY: No significant familial comorbid conditions directly related to patient complaint EXAM: Reviewed vital signs as charted by RN. CONSTITUTIONAL: Alert and oriented and responds appropriately to questions. Well-appearing; well-nourished HEAD: Normocephalic; atraumatic EYES: PERRL; Conjunctivae clear, sclerae non-icteric ENT: normal nose; + rhinorrhea; moist mucous membranes; pharynx without lesions noted, no uvula edema or deviation, no tonsillar hypertrophy, phonation normal NECK: Supple without meningismus; non-tender; no cervical lymphadenopathy, no masses CARD: RRR; no murmurs, no clicks, no rubs, no gallops; symmetric distal pulses RESP: Normal chest excursion without splinting or tachypnea; breath sounds clear and equal bilaterally; no wheezes, no rhonchi, no rales, pulse oximetry 98% on room air not hypoxic ABD/GI: Normal bowel sounds; non-distended; soft, non-tender, no rebound, no guarding; no palpable organomegaly or masses. BACK: The back appears normal and is non-tender to palpation, there is no CVA tenderness EXT: Normal ROM in all joints; non-tender to palpation; no cyanosis, no effusions, no edema SKIN: Normal color for age and race; warm; dry; good turgor; no acute lesions noted NEURO: Moves all extremities equally; Motor and sensory function intact PSYCH: The patient's mood and manner are appropriate. Grooming and personal hygiene are appropriate. MDM: 20-year-old female presenting essentially for a Covid test. Will obtain a Covid test she will self quarantine at home pending results The patient was evaluated during the global COVID-19 pandemic and that diagnosis was suspected/considered upon their initial presentation. Their evaluation, treatment and testing was consistent with current guidelines for patients who present with complaints or symptoms that may be related to COVID-19 - REPRODUCTIVE Reproductive: DENIES: : Past Medical History - Social History Smoking Status: Unknown if Ever Smoked Family History: None, Reviewed & Not Pertinent Renal/ Medical History: Denies: Hx Peritoneal Dialysis Psychiatric Medical History: Reports: Hx Anxiety, Hx Bipolar Disorder, Hx Depression Vertical Provider Document - INFECTION CONTROL TRAVEL OUTSIDE OF THE [place] IN LAST 30 DAYS: No Course - Vital Signs Vital signs: Temp Pulse Resp BP Pulse Ox 98.4 F 70 16 119/68 100 08/29/20 15:37 08/29/20 15:37 08/29/20 15:37 08/29/20 15:37 08/29/20 15:37 - Laboratory Results Critical Laboratory Results Reviewed: No Critical Results - Radiology Results Critical Radiology Results Reviewed: No Critical Results Discharge - Discharge Clinical Impression: Person under investigation for COVID-19 Condition: Stable Disposition: HOME, SELF-CARE Instructions: COVID-19 Guidance for Persons Under Investigation Additional Instructions: You are considered a person under investigation for COVID-19 at this time self quarantine at home pending your test results. Symptomatic management, if you have considerably worsened shortness of breath or concerns return to the emergency department for reevaluation otherwise follow-up with your primary care providers. You should receive your test results by notification from the hospital. These may take 2 to 5 days. Forms: Return to Work
== END 2020-08-29 18:13 | disposition home or self-care (01) ==
LOC: ER 15:24
DX: U07.1 COVID-19 (principal); R09.89 Other specified symptoms and signs involving the circulatory and respiratory systems; R05 Cough; R51.9 Headache, unspecified
CPT/HCPCS: 99283; 87635; C9803

== ENCOUNTER 2020-09-15 11:51 | Emergency (ER) | payer SELFPAY ==
[2020-09-15 11:56] VITALS: BP 115/59
[2020-09-15] MEDS ORDERED: DIPH/PERTUSS(ACELL)/TETANUS VAC/PF 0.5 ML SYR (>=10YO) IM ONE (12:22)
--- NOTE | 2020-09-15 12:24 | ER Document Report ---
ED Extremity Problem, Lower - General Chief Complaint: Foot Injury Stated Complaint: RIGHT FOOT PAIN Time Seen by Provider: 09/15/20 12:21 Notes: CHIEF COMPLAINT: Laceration to heel of right foot HPI: 20-year-old female presenting for superficial laceration to the heel of the right foot this morning when she stepped on the backside of a TV, states there was some glass on the floor she is not sure if she may have stepped on glass afterwards. Is not up-to-date on her tetanus vaccination. ROS: See HPI - all other systems were reviewed and are otherwise negative Constitutional: no fever Integumentary: Positive laceration Allergy: no hives Musculoskeletal: + extremity pain or swelling Neurological: no numbness/tingling, no weakness MEDICATIONS: I agree with the patient medications as charted by the RN. ALLERGIES: I agree with the allergies as charted by the RN. PAST MEDICAL HISTORY/PAST SURGICAL HISTORY: Reviewed and agree as charted by RN. SOCIAL HISTORY: Reviewed and agree as charted by RN. FAMILY HISTORY: No significant familial comorbid conditions directly related to patient complaint EXAM: Reviewed vital signs as charted by RN. CONSTITUTIONAL: Alert and oriented and responds appropriately to questions. Well-appearing; well-nourished HEAD: Normocephalic; atraumatic EYES: onjunctivae clear, sclerae non-icteric ENT: normal nose; no rhinorrhea; moist mucous membranes NECK: Supple without meningismus CARD: symmetric distal pulses RESP: Normal chest excursion without splinting or tachypnea ABD/GI: non-distended BACK: The back appears normal EXT: Normal ROM in all joints; no cyanosis, no effusions, no edema SKIN: Normal color for age and race; warm; dry; good turgor; there is a superficial abrasion without visible laceration on the heel of the right foot. No visible or palpable foreign body. NEURO: Moves all extremities equally; Motor and sensory function intact PSYCH: The patient's mood and manner are appropriate. Grooming and personal hygiene are appropriate. MDM: 20-year-old female superficial abrasion to the heel of the right foot will obtain an x-ray to evaluate for foreign body. Update tetanus status. If no foreign body on x-ray treat symptomatically follow-up PCP TRAVEL OUTSIDE OF THE [place] IN LAST 30 DAYS: No - Related Data Allergies/Adverse Reactions: No Known Allergies Allergy (Verified 02/21/20 13:56) Past Medical History - Social History Smoking Status: Unknown if Ever Smoked Family History: None, Reviewed & Not Pertinent Renal/ Medical History: Denies: Hx Peritoneal Dialysis Psychiatric Medical History: Reports: Hx Anxiety, Hx Bipolar Disorder, Hx Depression Physical Exam - Vital signs Vitals: Temp Pulse Resp BP Pulse Ox 98.0 F 75 16 115/59 L 100 09/15/20 11:56 09/15/20 11:56 09/15/20 11:56 09/15/20 11:56 09/15/20 11:56 Course - Re-evaluation Re-evalutation: 09/15/20 12:45 X-ray to my review does not show evidence of foreign body will discharge home to follow-up with PCP - Vital Signs Vital signs: Temp Pulse Resp BP Pulse Ox 98.0 F 75 16 115/59 L 100 09/15/20 11:56 09/15/20 11:56 09/15/20 11:56 09/15/20 11:56 09/15/20 11:56 - Laboratory Results Critical Laboratory Results Reviewed: No Critical Results - Radiology Results Critical Radiology Results Reviewed: No Critical Results Discharge - Discharge Clinical Impression: Abrasion of foot, right Qualifiers: Encounter type: initial encounter Qualified Code(s): S90.811A - Abrasion, right foot, initial encounter Condition: Stable Disposition: HOME, SELF-CARE Additional Instructions: Keep the wound areas clean and dry as possible, apply a small amount of antibiotic ointment to the area twice daily until healed. Motrin or Tylenol for pain. Follow-up with your primary care provider for reevaluation of symptoms call for appointment
--- NOTE | 2020-09-15 13:14 | RADIOLOGY REPORT (SQ) ---
EXAM DESCRIPTION: FOOT RIGHT COMPLETE IMAGES COMPLETED DATE/TIME: 09/15/2020 12:45 pm REASON FOR STUDY: eval FB heel COMPARISON: None. NUMBER OF VIEWS: Three views. TECHNIQUE: AP, lateral and oblique radiographic images acquired of the right foot. LIMITATIONS: None. FINDINGS: MINERALIZATION: Normal. BONES: No acute fracture or dislocation. No worrisome bone lesions. JOINTS: No effusions. SOFT TISSUES: No soft tissue swelling. No foreign body. OTHER: No other significant finding. IMPRESSION: No radiopaque foreign body is seen in the heel. No acute osseous findings. TECHNICAL DOCUMENTATION: JOB ID: [id number] [email or web address]- All Rights Reserved Reading location - IP/workstation name: [email or web address]
== END 2020-09-15 13:07 | disposition home or self-care (01) ==
LOC: ER 11:51
DX: S90.811A Abrasion, right foot, initial encounter (principal); W22.8XXA Striking against or struck by other objects, initial encounter; Z23 Encounter for immunization
CPT/HCPCS: 90471; 90715; 99283